=== PATIENT | female | born 1990 | race Caucasian/White ===

== ENCOUNTER 2020-01-05 10:06 | Outpatient (RCR) | payer OTHER | END 2020-01-29 | disposition home or self-care (01) | LOC: LAB 10:06 | PROVIDERS: ATTEND Family Medicine | DX: O09.90 Supervision of high risk pregnancy, unspecified, unspecified trimester (principal); Z3A.00 Weeks of gestation of pregnancy not specified | CPT/HCPCS: 36415; 84144; 84702 ==

== ENCOUNTER → 2020-02-23 | Outpatient (CLI) | payer OTHER ==
--- NOTE | 2020-02-23 12:09 | Diagnostic Imaging Report ---
INDICATION: survey. TECHNIQUE: Multiple Real-time grayscale images were obtained over the gravid uterus. COMPARISON: None FINDINGS: There is a single live fetus in a cephalic presentation. The heart rate was recorded at 143 BPM. The placenta is posterior. The amniotic fluid index is 13.7 cm. The cervical length is 4.1 cm. The survey demonstrates the kidneys, bladder, and stomach to be unremarkable. The brain is unremarkable. There is a four-chamber heart. There is a three-vessel cord with normal insertion. The spine is unremarkable. Biometrical measurements are as follows: Biparietal 5.13 cm, age 21 weeks 4 days. Head circumference 19.10 cm, age 21 weeks 3 days. Abdominal circumference 15.48 cm, age 20 weeks 5 days. Femur length 3.50 cm, age 21 weeks 1 days. Sonographic estimate age: 21 weeks 2 days. Sonographic estimated date of delivery: 07/03/2020. Estimated Weight: 386 gm (+/- 56 gm). LMP percentile: 56%. heart rate: 143 beats per minute. number: 1 of 1. IMPRESSION: Single live IUP of 21 weeks 2 days gestational age. The estimated date of confinement sonographically is 07/03/2020. Dictated by: Dictated on workstation # [id number]
== END ==
LOC: RAD 10:00
PROVIDERS: ATTEND Nurse Practitioner Women's Health
DX: Z34.92 Encounter for supervision of normal pregnancy, unspecified, second trimester (principal); Z3A.21 21 weeks gestation of pregnancy
CPT/HCPCS: 76805

== ENCOUNTER 2020-04-27 13:57 | Outpatient (RCR) | payer OTHER | END 2020-05-02 | disposition home or self-care (01) | LOC: LAB 13:57 | PROVIDERS: ATTEND Family Medicine | DX: O09.90 Supervision of high risk pregnancy, unspecified, unspecified trimester (principal); Z3A.00 Weeks of gestation of pregnancy not specified | CPT/HCPCS: 36415; 84144 ==

== ENCOUNTER 2020-06-21 09:33 | Outpatient (RCR) | payer OTHER ==
[2020-07-08] MEDS ORDERED: IBUP-844 PO (21:00)
[2020-07-08] MEDS ORDERED: DCS100C PO (21:00)
[2020-07-08] MEDS ORDERED: FERR325T18 PO (21:00)
[2020-07-08] MEDS ORDERED: DIBU30OI TOP (21:00)
[2020-07-08] MEDS ORDERED: BENZ78AE5 TP (21:00)
[2020-07-08] MEDS ORDERED: ACHD5005 PO (21:00)
== END 2020-08-08 | disposition home or self-care (01) ==
LOC: LAB 09:33
PROVIDERS: ATTEND Family Medicine
DX: O09.90 Supervision of high risk pregnancy, unspecified, unspecified trimester (principal); Z3A.00 Weeks of gestation of pregnancy not specified
CPT/HCPCS: 36415; 84144

== ENCOUNTER 2020-07-08 18:53 | Inpatient (IN) | payer OTHER ==
[~2020-07-08] VITALS: Ht 170.2 cm; Wt 79.1 kg
[2020-07-08] MEDS ORDERED: D5 LR IV SOLUTION 1,000 ML IV ONE (19:10)
[2020-07-08] MEDS ORDERED: OXYTOCIN PRE-MIX DRIP 1,000 ML IV ONE (19:10)
[2020-07-08] MEDS ORDERED: LIDOCAINE 1% INJ 20 ML 20 ML VIAL INJ PRN (19:30)
[2020-07-08] MEDS ORDERED: D5 LR IV SOLUTION 1,000 ML IV SCH (19:30)
[2020-07-08] MEDS ORDERED: ONDANSETRON 4 MG/2 ML (SDV) Z0FRAN ONE (19:36)
[2020-07-08] MEDS ORDERED: LIDOCAINE/EPI 2% 1:200,00 (XYLOCAINE) 10 ML VIAL ONE (19:44)
[2020-07-08 20:00] VITALS: BP 121/73
[2020-07-08 20:00] LABS: BASOPHILS % (AUTO) 0 % (0-10); EOSINOPHILS # (AUTO) 0.1 10^3/uL (0.0-0.3); EOSINOPHILS % (AUTO) 1 % (0-10); HEMATOCRIT 35 % (35-52); HEMOGLOBIN 12.4 g/dL (11.5-16.0); LYMPHOCYTES # (AUTO) 1.2 10^3/uL (1.0-4.0); LYMPHOCYTES % (AUTO) 14 % (12-44); MEAN CORPUSCULAR HEMOGLOBIN 32 pg (25-34); MEAN CORPUSCULAR HGB CONC 35 g/dL (32-36); MEAN CORPUSCULAR VOLUME 90 fL (80-99); MEAN PLATELET VOLUME 11.6 fL (9.0-12.2); MONOCYTES # (AUTO) 0.5 10^3/uL (0.0-1.0); MONOCYTES % (AUTO) 5 % (0-12); NEUTROPHILS # (AUTO) 6.8 10^3/uL (1.8-7.8); NEUTROPHILS % (AUTO) 79 % (42-75); PLATELET COUNT 163 10^3/uL (130-400); WHITE BLOOD COUNT 8.5 10^3/uL (4.3-11.0)
[2020-07-08] MEDS: IBUPROFEN 600 MG (MOTRIN) TAB PO SCH (20:30)
[2020-07-08] MEDS: OXYTOCIN PRE-MIX DRIP 500 ML IV SCH ×2 (20:41→21:11)
--- NOTE | 2020-07-08 20:54 | History & Physical-OB ---
OB - Chief Complaint & HPI Date/Time Date of Admission: Date of Admission: Jul 08, 2020 at 19:40 Date seen by a Provider: Jul 08, 2020 Time Seen by a Provider: 08:45 Chief Complaint/History OB-Reason for Admission/Chief: Onset of Labor Hx : 3 Hx Para: 2 Expected Date of Delivery: Jul 07, 2020 Gestational Age in Weeks: 40 Gestational Age in Days: 1 Admission Nurse Assessment Rev: Yes Allergies and Home Medications Allergies Coded Allergies: No Known Drug Allergies (Unverified , 07/08/20) Patient Home Medication List Home Medication List Reviewed: Yes OB - History Hx of Present Care: Yes Ultrasounds: Normal mid trimester US Obstetrical Complications: None Medical Complications: None Patient Past Medical History n/a Immunizations Hepatitis A: Yes Hepatitis B: Yes OB - Admission Exam Physical Exam HEENT: NCAT Heart: Rhythm Normal Lungs: Clear Abdomen: Gravid Extremities: Normal Reflexes: Normal Cervical Dilatation: 6cm Effacement: 75% Station: -1 Membranes: Intact Heart Rate: 130's Accelerations: Accelerations Present Decelerations: No Decelerations Short Term Variability: Present Alf Variability: Average (6-25) Contractions on Admission: < 5 Minutes Apart Intensity: Firm Labs Laboratory Tests Test 07/08/20 19:48 Range/Units White Blood Count 8.5 4.3-11.0 10^3/uL Red Blood Count 3.94 3.80-5.11 10^6/uL Hemoglobin 12.4 11.5-16.0 g/dL Hematocrit 35 35-52 % Mean Corpuscular Volume 90 80-99 fL Mean Corpuscular Hemoglobin 32 25-34 pg Mean Corpuscular Hemoglobin Concent 35 32-36 g/dL Red Cell Distribution Width 11.9 10.0-14.5 % Platelet Count 163 130-400 10^3/uL Mean Platelet Volume 11.6 9.0-12.2 fL Immature Granulocyte % (Auto) 1 % Neutrophils (%) (Auto) 79 H 42-75 % Lymphocytes (%) (Auto) 14 12-44 % Monocytes (%) (Auto) 5 0-12 % Eosinophils (%) (Auto) 1 0-10 % Basophils (%) (Auto) 0 0-10 % Neutrophils # (Auto) 6.8 1.8-7.8 10^3/uL Lymphocytes # (Auto) 1.2 1.0-4.0 10^3/uL Monocytes # (Auto) 0.5 0.0-1.0 10^3/uL Eosinophils # (Auto) 0.1 0.0-0.3 10^3/uL Basophils # (Auto) 0.0 0.0-0.1 10^3/uL Immature Granulocyte # (Auto) 0.1 0.0-0.1 10^3/uL OB - Assessment/Plan/Diagnosis Assessment Assessment: active labor Admission Dx 29 yo @ 40.1 Active labor Post dates GBS neg Admission Status: Inpatient Order (span 2 midnights) Reason for Inpatient Admission: Active labor at term Plan Plan: Expectant Management NILS ZHAO DO Jul 08, 2020 20:54
[2020-07-08] MEDS ORDERED: IBUPROFEN 600 MG (MOTRIN) TAB PO ONE (20:55)
--- NOTE | 2020-07-08 20:57 | OB Labor & Delivery Record ---
L&D History Date of Service Date of Service: Jul 08, 2020 History Expected Date of Delivery: Jul 07, 2020 Gestational Age in Weeks: 40 Hx : 3 Hx Para: 2 Complications Events: Routine care Operative Indications (Cesarea: N/A-Vaginal Delivery Intrapartal Events: Precipitous Labor < 3 hrs L&D Stage1 Stage One Onset of Labor - Date: Jul 08, 2020 Monitors and Tracing Monitor Mode: External Monitor Accelerations: Uniform Monitor Decelerations: Variable Station: -1 Senior Living Variability: Average (6-10) Short Term Variability: Present Presentation: Vertex Rupture of Membranes Spontaneous Ruture of Membrane: Yes Amniotic Membrane Rupture Time: 20:20 Amniotic Membrane Fluid Desc.: Meconium Stained Vaginal Bleeding Description: Normal Show Progress/Notes Patient admitted for active labor 6-7 cm. She progressed without augmentation and SROM to complete and +3 station without any analgesia. I was called for anticipated precipitous delivery. L&D Stage2 Stage Two Stage II Date: Jul 08, 2020 Monitors and Tracing Monitor Mode: External Monitor Accelerations: Uniform Monitor Decelerations: Variable Freelance Displayer Variability: Average (6-10) Short Term Variability: Present Position: Right Occiput Anterior Presentation: Vertex Cord Descript/Complications Cord Vessel Description: 3 Vessels Delivery Type Infant Delivery Method: Spontaneous Vaginal Anterior Shoulder: Right Episiotomy/Perineal Laceration Episiotomy Description: Perineal Extension/lac, 1st degree Degree (describe repair) 1st degree perineal laceration repaired using 3-0 rapide Condition of Delivery 1 minute Comment: 8 5 minute Comment: 9 Notes Live female weight pending. Condition of Condition of Infant: Living Exam: No Observed Abnormalities Resuscitation Resuscitation: N/A - Spontaneous Resp L&D Stage3 Stage Three Stage III Date: Jul 08, 2020 Pictocin Pitocin Administration Comment: 30 mu wide open after delivery of placenta Placenta Delivery Placenta Delivery: Spontaneous Delivery Summary Summary Estimated blood loss (mL): 300 Attending at delivery: Nils Zhao DO Condition of Delivery Examined: Cervix Examined, Uterus Explored Post Hemorrhage: No Condition of Mother stable Condition of (s) stable NILS ZHAO DO Jul 08, 2020 20:57
--- NOTE | 2020-07-08 20:59 | Discharge Inst-Women's Service ---
Discharge Inst-Women's Serv Depart Medication/Instructions New, Converted or Re-Newed RX: RX on Chart Final Diagnosis PPD 2 NVD Problems Reviewed?: Yes Consults/Follow Up Additional Follow Up: Yes Orders/Referrals Dr. Zhao in 6 weeks Activity Activity: Activity as Tolerated Driving Instructions: No Driving for 1 Week NO SMOKING: NO SMOKING Nothing Inside Vagina: No Douching, No [place], No Tampons Diet Discharge Diet: No Restrictions Symptoms to Report to : Bleeding Excessive, Pain Increased, Fever Over 101 Degrees F, Vaginal Bleeding Increase, Questions/Concerns For Any Problems or Questions: Contact Your Physician NILS ZHAO DO Jul 08, 2020 20:59
[2020-07-08] MEDS ORDERED: IBUP-844 PO (21:00)
[2020-07-08] MEDS ORDERED: DIBUCAINE (NUPERCAINAL) 1% OINT 30 GM TOP PRN (21:00)
[2020-07-08] MEDS ORDERED: MEASLES,MUMPS,RUBELLA 1 EA INJ SQ ONE (21:00)
[2020-07-08] MEDS ORDERED: DCS100C PO (21:00)
[2020-07-08] MEDS ORDERED: ACHD5005 PO (21:00)
[2020-07-08] MEDS ORDERED: FERR325T18 PO (21:00)
[2020-07-08] MEDS ORDERED: BENZOCAINE/MENTHOL (DERMOPLAST) 60 ML CAN TP PRN (21:00)
[2020-07-08] MEDS ORDERED: WITCH HAZEL(TUCKS) 40 EA JAR TOP PRN (21:00)
[2020-07-08] MEDS ORDERED: BENZ78AE5 TP (21:00)
[2020-07-08] MEDS ORDERED: HYDROcodone/APAP 5 MG/325 MG (LORTAB) TAB PO PRN (21:00)
[2020-07-08] MEDS ORDERED: TETANUS,DIPTH,PERTUSS P/F (BOOSTRIX) 0.5 ML VIAL IM ONE (21:00)
[2020-07-08] MEDS ORDERED: DIBU30OI TOP (21:00)
[2020-07-08 21:15] VITALS: BP 116/70
[2020-07-08 21:30] VITALS: BP 110/61
[2020-07-08 21:45] VITALS: BP 117/66
[2020-07-08] MEDS ORDERED: CATHETER FLUSH 10 ML SYR IV SCH ×2 (22:00)
[2020-07-08 22:15] VITALS: BP 100/57
[2020-07-08 22:44] VITALS: BP 121/73
[2020-07-09 02:06] VITALS: BP 87/48
[2020-07-09] MEDS: IBUPROFEN 600 MG (MOTRIN) TAB PO SCH ×3 (02:07→15:04)
[2020-07-09] MEDS: DOCUSATE SODIUM 100 MG (COLACE) CAP PO SCH ×2 (02:07→08:34)
[2020-07-09 05:22] LABS: BASOPHILS % (AUTO) 0 % (0-10); EOSINOPHILS % (AUTO) 0 % (0-10); HEMATOCRIT 30 % (35-52); HEMOGLOBIN 10.5 g/dL (11.5-16.0); LYMPHOCYTES # (AUTO) 1.2 10^3/uL (1.0-4.0); LYMPHOCYTES % (AUTO) 12 % (12-44); MEAN CORPUSCULAR HEMOGLOBIN 31 pg (25-34); MEAN CORPUSCULAR HGB CONC 35 g/dL (32-36); MEAN CORPUSCULAR VOLUME 89 fL (80-99); MEAN PLATELET VOLUME 12.1 fL (9.0-12.2); MONOCYTES # (AUTO) 0.6 10^3/uL (0.0-1.0); MONOCYTES % (AUTO) 6 % (0-12); NEUTROPHILS # (AUTO) 8.2 10^3/uL (1.8-7.8); NEUTROPHILS % (AUTO) 82 % (42-75); PLATELET COUNT 161 10^3/uL (130-400)
[2020-07-09 05:48] VITALS: BP 96/50
[2020-07-09] MEDS ORDERED: PRENATAL VITAMIN 1 EA TAB PO SCH (07:00)
--- NOTE | 2020-07-09 08:08 | Postpartum Progress Note ---
Note Note Day # 1 Subjective: Patient is without complaints. Ambulating, voiding. Tolerating a regular diet without nausea or vomiting. Normal lochia. Pain is well controlled with oral pain medications. Objective: Physical Exam: General - Alert and oriented, no apparent distress Abdomen - Soft, appropriately tender to palpation, non-distended, fundus firm at umbilicus Extremities - no edema, negative Kassandra's bilaterally Assessment: PPD 1 NVD Acute blood loss anemia Plan: Routine care. Encourage breast feeding. Encourage ambulation. Ferrous sulfate supplementation. Plan for discharge tomorrow Vitals - Labs Vital Signs - I&O Vital Signs Date Time Temp Pulse Resp B/P (MAP) Pulse Ox O2 Delivery O2 Flow Rate FiO2 07/09/20 05:48 36.6 65 18 96/50 (65) 97 Room Air 07/09/20 02:06 36.8 86 18 87/48 (61) 96 Room Air 07/08/20 22:44 37.6 91 18 98 Room Air 07/08/20 22:15 86 18 100/57 (71) Room Air 07/08/20 21:45 37.4 74 18 117/66 (83) Room Air 07/08/20 21:30 37.3 77 18 110/61 (77) Room Air 07/08/20 21:15 37.4 81 18 116/70 (85) Room Air 07/08/20 21:00 37.3 18 Room Air 07/08/20 20:45 37.6 18 Room Air 07/08/20 20:00 37.6 91 18 121/73 (89) 98 Room Air Labs Laboratory Tests 07/08/20 19:48: White Blood Count 8.5, Red Blood Count 3.94, Hemoglobin 12.4, Hematocrit 35, Mean Corpuscular Volume 90, Mean Corpuscular Hemoglobin 32, Mean Corpuscular Hemoglobin Concent 35, Red Cell Distribution Width 11.9, Platelet Count 163, Mean Platelet Volume 11.6, Immature Granulocyte % (Auto) 1, Neutrophils (%) (Auto) 79H, Lymphocytes (%) (Auto) 14, Monocytes (%) (Auto) 5, Eosinophils (%) (Auto) 1, Basophils (%) (Auto) 0, Neutrophils # (Auto) 6.8, Lymphocytes # (Auto) 1.2, Monocytes # (Auto) 0.5, Eosinophils # (Auto) 0.1, Basophils # (Auto) 0.0, Immature Granulocyte # (Auto) 0.1 07/09/20 05:12: White Blood Count 10.0, Red Blood Count 3.36L, Hemoglobin 10.5L, Hematocrit 30L, Mean Corpuscular Volume 89, Mean Corpuscular Hemoglobin 31, Mean Corpuscular Hemoglobin Concent 35, Red Cell Distribution Width 11.9, Platelet Count 161, Mean Platelet Volume 12.1, Immature Granulocyte % (Auto) 0, Neutrophils (%) (Auto) 82H, Lymphocytes (%) (Auto) 12, Monocytes (%) (Auto) 6, Eosinophils (%) (Auto) 0, Basophils (%) (Auto) 0, Neutrophils # (Auto) 8.2H, Lymphocytes # (Auto) 1.2, Monocytes # (Auto) 0.6, Eosinophils # (Auto) 0.0, Basophils # (Auto) 0.0, Immature Granulocyte # (Auto) 0.0 NILS ZHAO DO Jul 09, 2020 08:08
[2020-07-09 08:31] VITALS: BP 97/60
[2020-07-09] MEDS ORDERED: FERROUS SULF 325 MG (IRON) TAB PO SCH (09:00)
[2020-07-09 13:11] VITALS: BP 109/58
== END 2020-07-09 17:20 | disposition home or self-care (01) | DRG 806 ==
LOC: WSo 18:53 → LDRP 18:54 → WSo 19:39 → LDRP 19:40
PROVIDERS: ADMIT Obstetrics & Gynecology; ATTEND Obstetrics & Gynecology
PROC: 10E0XZZ Delivery of Products of Conception, External Approach (ICD-10-PCS; principal; 2020-07-08)
PROC: 0HQ9XZZ Repair Perineum Skin, External Approach (ICD-10-PCS; 2020-07-08)
DX: O48.0 Post-term pregnancy (principal); D62 Acute posthemorrhagic anemia; Z37.0 Single live birth; Z3A.40 40 weeks gestation of pregnancy; O70.0 First degree perineal laceration during delivery; O90.81 Anemia of the puerperium
CPT/HCPCS: 36415; 85025; 86850; 86900; 86901; 99212

== ENCOUNTER 2020-08-10 02:14 | Emergency (ER) | payer OTHER ==
[~2020-08-10] VITALS: Ht 170 cm; Wt 65.0 kg
[~2020-08-10 02:14] MED LIST: ACHD5005 PO; BENZ78AE5 TP; DCS100C PO; DIBU30OI TOP; FERR325T18 PO; IBUP-844 PO
--- NOTE | 2020-08-10 02:37 | ED Chest Pain ---
General Chief Complaint: Chest Pain Stated Complaint: CP Source: patient History of Present Illness Date Seen by Provider: Aug 10, 2020 Time Seen by Provider: 02:21 Initial Comments PT ARRIVES VIA POV FROM HOME C/O PAIN TO LOWER CHEST, RADIATES ALL THE WAY AROUND HER LOWER CHEST/RIBS ON BOTH SIDES, AND ALL THE WAY AROUND TO HER BACK ON BOTH SIDES PAIN BEGAN JUST BEFORE MIDNIGHT. NO COUGH NO SHORTNESS OF BREATH NO FEVER/SWEATS/CHILLS STATES SHE WAS "SHAKING REALLY BAD AND COULDN'T CONTROL IT, BECAUSE THE PAIN WAS SO BAD" --IS GONE NOW + NAUSEA, NO VOMITING NO SWELLING IN LEGS/ FEET OR PAIN IN CALVES NO RECENT ILLNESS PT DELIVERED 4 WEEKS AGO--NORMAL VAGINAL DELIVERY, NO COMPLICATIONS PT IS AB 0 PT IS STILL HAVING LIGHT BLEEDING/SPOTTING. NOT ON CONTROL STATES THIS SAME PAIN ACTUALLY BEGAN DURING HER 3RD TRIMESTER OF -- HAPPENED SEVERAL TIMES WHILE SHE WAS ALWAYS IS AT NIGHT, AND STATES SHE NORMALLY TAKES A TUMS AND IT GOES AWAY AFTER A COUPLE OF HOURS HAD IT ABOUT 3 WEEKS AGO, AND TOOK IBUPROFEN AND IT WENT AWAY STATES TONIGHT, SHE TOOK AN IBUPROFEN AND IT GOT BETTER, THEN STARTED COMING BACK SO SHE TOOK A LEFT OVER HYDROCODONE FROM HAVING THE BABY, AND PAIN IS NOW GONE HAS NOT SOUGHT CARE FOR THIS UNTIL TONIGHT SYMPTOMS NOT ANY DIFFERENT TONIGHT. STATES SHE THOUGHT IT WAS ACID REFLUX. PCP: DR. TREJO VP DATA: DR. ZHAO Allergies and Home Medications Allergies Coded Allergies: No Known Drug Allergies (Unverified , 07/08/20) Home Medications Docusate Sodium 100 Mg Capsule, 100 MG PO BID PRN for CONSTIPATION-1ST LINE Prescribed by: NILS ZHAO on 07/08/202099 Ferrous Sulfate 325 Mg Tablet, 325 MG PO DAILY Prescribed by: NILS ZHAO on 07/08/202099 Hydrocodone Bit/Acetaminophen 1 Tab Tab, 1 EA PO Q4H PRN for PAIN-MODERATE (5-7) Prescribed by: NILS ZHAO on 07/08/202099 Ibuprofen 600 Mg Tablet, 600 MG PO Q6HR Prescribed by: NILS ZHAO on 07/08/202099 Patient Home Medication List Home Medication List Reviewed: Yes Review of Systems Review of Systems Constitutional: no symptoms reported; No chills, No diaphoresis, No dizziness, No fever, No malaise, No weakness EENTM: No Symptoms Reported Respiratory: No Symptoms Reported Cardiovascular: See HPI; Denies Edema, Denies Irregular Heart Rate, Denies Lightheadedness, Denies Palpitations, Denies Syncope Gastrointestinal: See HPI; Denies Abdominal Pain; Nausea; Denies Vomiting Genitourinary: No Symptoms Reported Musculoskeletal: see HPI, back pain Skin: no symptoms reported Psychiatric/Neurological: See HPI ("SHAKING" DUE TO PAIN ) Endocrine: No Symptoms Reported Hematologic/Lymphatic: No Symptoms Reported Past Pbqostq-[id number]-[id number] Hx Past Med/Social Hx: Reviewed and Corrections made Patient Social History Alcohol Use: Denies Use Smoking Status: Never a Smoker Past Medical History Surgeries: No Respiratory: No Cardiac: No Neurological: No : No Hx : 3 Hx Para: 3 Hx Total # of Abortions (Sp): 0 Reproductive Disorders: No Female Reproductive Disorders: Denies Genitourinary: No Gastrointestinal: No Musculoskeletal: Yes (PSEUDOGOUT IN KNEE) Endocrine: No HEENT: No Cancer: No Psychosocial: No Integumentary: No Blood Disorders: No Physical Exam Vital Signs Vital Signs - First Documented Capillary Refill : Less Than 3 Seconds Height, Weight, BMI Height: '" Weight: lbs. oz. kg; 27.30 BMI Method: General Appearance: No Apparent Distress, WD/WN HEENT: PERRL/EOMI Respiratory: Normal Breath Sounds, No Accessory Muscle Use, No Respiratory Distress Cardiovascular: Regular Rate, Rhythm, No Edema, No JVD, No Murmur Gastrointestinal: Normal Bowel Sounds, No Organomegaly, No Pulsatile Mass, Soft, Tenderness (MILD EPIGASTRIC TENDERNESS) Extremity: Normal Capillary Refill, Normal Inspection, Normal Range of Motion, Non Tender, No Calf Tenderness Neurologic/Psychiatric: Alert, Oriented x3, No Motor/Sensory Deficits, Normal Mood/Affect, retoucher photoengraving II-XII Norm as Tested Skin: Normal Color, Warm/Dry; No Rash Progress/Results/Core Measures Results/Orders Lab Results Laboratory Tests Test 08/10/20 02:35 08/10/20 03:12 Range/Units White Blood Count 6.1 4.3-11.0 10^3/uL Red Blood Count 4.18 3.80-5.11 10^6/uL Hemoglobin 13.1 11.5-16.0 g/dL Hematocrit 38 35-52 % Mean Corpuscular Volume 92 80-99 fL Mean Corpuscular Hemoglobin 31 25-34 pg Mean Corpuscular Hemoglobin Concent 34 32-36 g/dL Red Cell Distribution Width 11.4 10.0-14.5 % Platelet Count 283 130-400 10^3/uL Mean Platelet Volume 9.8 9.0-12.2 fL Immature Granulocyte % (Auto) 0 % Neutrophils (%) (Auto) 68 42-75 % Lymphocytes (%) (Auto) 24 12-44 % Monocytes (%) (Auto) 5 0-12 % Eosinophils (%) (Auto) 3 0-10 % Basophils (%) (Auto) 0 0-10 % Neutrophils # (Auto) 4.2 1.8-7.8 10^3/uL Lymphocytes # (Auto) 1.5 1.0-4.0 10^3/uL Monocytes # (Auto) 0.3 0.0-1.0 10^3/uL Eosinophils # (Auto) 0.2 0.0-0.3 10^3/uL Basophils # (Auto) 0.0 0.0-0.1 10^3/uL Immature Granulocyte # (Auto) 0.0 0.0-0.1 10^3/uL Prothrombin Time 12.6 12.2-14.7 SEC INR Comment 0.9 0.8-1.4 Activated Partial Thromboplast Time 30 24-35 SEC Sodium Level 139 135-145 MMOL/L Potassium Level 3.4 L 3.6-5.0 MMOL/L Chloride Level 105 98-107 MMOL/L Carbon Dioxide Level 20 L 21-32 MMOL/L Anion Gap 14 5-14 MMOL/L Blood Urea Nitrogen 22 H 7-18 MG/DL Creatinine 0.86 0.60-1.30 MG/DL Estimat Glomerular Filtration Rate > 60 BUN/Creatinine Ratio 26 Glucose Level 99 70-105 MG/DL Calcium Level 9.1 8.5-10.1 MG/DL Corrected Calcium 8.9 8.5-10.1 MG/DL Magnesium Level 1.9 1.6-2.4 MG/DL Total Bilirubin 0.7 0.1-1.0 MG/DL Aspartate Amino Transf (AST/SGOT) 177 H 5-34 U/L Alanine Aminotransferase (ALT/SGPT) 88 H 0-55 U/L Alkaline Phosphatase 177 H 40-136 U/L Total Creatine Kinase 60 29-168 U/L Creatine Kinase MB 0.5 <6.6 NG/ML Myoglobin 19.2 10.0-92.0 NG/ML Troponin I < 0.028 <0.028 NG/ML B-Type Natriuretic Peptide < 10.0 <100.0 PG/ML Total Protein 7.6 6.4-8.2 GM/DL Albumin 4.3 3.2-4.5 GM/DL Amylase Level 53 25-125 U/L Lipase 19 8-78 U/L Serum Test, Qualitative NEGATIVE NEGATIVE Urine Color YELLOW Urine Clarity CLEAR Urine pH 7.0 5-9 Urine Specific Kimberly 1.010 L 1.016-1.022 Urine Protein NEGATIVE NEGATIVE Urine Glucose (UA) NEGATIVE NEGATIVE Urine Ketones NEGATIVE NEGATIVE Urine Nitrite NEGATIVE NEGATIVE Urine Bilirubin NEGATIVE NEGATIVE Urine Urobilinogen 0.2 < = 1.0 MG/DL Urine Leukocyte Esterase 2+ H NEGATIVE Urine RBC (Auto) 1+ H NEGATIVE Urine RBC 0-2 /HPF Urine WBC 2-5 /HPF Urine Squamous Epithelial Cells RARE /HPF Urine Crystals NONE /LPF Urine Bacteria TRACE /HPF Urine Casts NONE /LPF Urine Mucus NEGATIVE /LPF Urine Culture Indicated YES My Orders Orders - JOB RUIZ DO Ed Iv/Invasive Line Start (08/10/20 02:23) Ekg Tracing (08/10/20 02:23) Monitor-Rhythm Ecg Trace Only (08/10/20 02:23) Amylase (08/10/20 02:23) BNP (08/10/20 02:23) Cbc With Automated Diff (08/10/20 02:23) Comprehensive Metabolic Panel (08/10/20 02:23) Creatine Kinase (08/10/20 02:23) Creatine Kinase Mb (08/10/20 02:23) Hcg,Qualitative Serum (08/10/20 02:23) Lipase (08/10/20 02:23) Magnesium (08/10/20 02:23) Protime With Inr (08/10/20 02:23) Partial Thromboplastin Time (08/10/20 02:23) Ua Culture If Indicated (08/10/20 02:23) Myoglobin Serum (08/10/20 02:23) Troponin I (08/10/20 02:23) Chest 1 View, Ap/Pa Only (08/10/20 02:53) Urine Culture (08/10/20 03:12) Ct Renu Chest/Noang Abd-Pelv W (08/10/20 03:41) Iohexol Injection (Omnipaque 350 Mg/Ml 1 (08/10/20 04:15) Received Contrast (Hold Metformin- Contr (08/10/20 04:15) Ns (Ivpb) (Sodium Chloride 0.9% Ivpb Bag (08/10/20 04:15) Medications Given in ED Current Medications Medications Dose Ordered Sig/Carolyne Route Start Time Stop Time Status Last Admin Dose Admin Iohexol 75 ml ONCE ONCE IV 08/10/20 04:15 08/10/20 04:16 DC 08/10/20 04:45 75 ML Sodium Chloride 100 ml ONCE ONCE IV 08/10/20 04:15 08/10/20 04:16 DC 08/10/20 04:45 100 ML Vital Signs/I&O 08/10/20 08/10/20 08/10/20 02:23 02:23 05:36 Temp 36.5 36.5 Pulse 79 69 Resp 18 18 B/P (MAP) 123/99 (107) 103/66 (107) Pulse Ox 98 99 O2 Delivery Room Air Room Air Room Air Progress Progress Note : Progress Note NO SYMPTOMS DURING ER STAY Initial ECG Impression Date: Aug 10, 2020 Initial ECG Impression Time: 02:26 Initial ECG Rate: 70 Initial ECG Rhythm: Normal Sinus Initial ECG Impression: Normal Diagnostic Imaging Comments CXR--NO ACUTE PROCESS, PENDING RADIOLOGIST REVIEW CT ANGIOGRAM CHEST/ ABDOMEN AND PELVIS--NO P.E. OR ACUTE ABNORMALITY IN CHEST. + CHOLELITHIASIS WITHOUT EVIDENCE OF CHOLECYSTITIS. PER [facility] VIA FAX AT [id number] Reviewed: Reviewed by Me Departure Impression Primary Impression: Cholelithiasis Additional Impressions: Epigastric abdominal pain Chest wall pain Elevated liver enzymes Disposition: HOME, SELF-CARE Condition: Improved Departure-Patient Inst. Referrals: ALLIE CADET,LOCAL PHYSICIAN (PCP) Primary Care Physician Patient Instructions: Gallbladder Diet, Gallstones (DC) Add. Discharge Instructions: TAKE IBUPROFEN AND HYDROCODONE NEEDED FOR PAIN TAKE TUMS NEEDED FOR STOMACH DISCOMFORT LOTS OF CLEAR LIQUIDS BLAND DIET--NO SPICY, GREASY/HIGH FAT OR ACIDIC FOODS OR DRINKS FOLLOW UP WITH DR. CADET, GENERAL SURGEON, FOR FURTHER CARE--CALL HIS OFFICE TODAY TO SCHEDULE AN APPOINTMENT RETURN TO ER IF SYMPTOMS WORSEN All discharge instructions reviewed with patient and/or family. Voiced understanding. JOB RUIZ DO Aug 10, 2020 02:37
[2020-08-10 02:51] LABS: BASOPHILS % (AUTO) 0 % (0-10); EOSINOPHILS # (AUTO) 0.2 10^3/uL (0.0-0.3); EOSINOPHILS % (AUTO) 3 % (0-10); HEMATOCRIT 38 % (35-52); HEMOGLOBIN 13.1 g/dL (11.5-16.0); LYMPHOCYTES # (AUTO) 1.5 10^3/uL (1.0-4.0); LYMPHOCYTES % (AUTO) 24 % (12-44); MEAN CORPUSCULAR HEMOGLOBIN 31 pg (25-34); MEAN CORPUSCULAR HGB CONC 34 g/dL (32-36); MEAN CORPUSCULAR VOLUME 92 fL (80-99); MEAN PLATELET VOLUME 9.8 fL (9.0-12.2); MONOCYTES # (AUTO) 0.3 10^3/uL (0.0-1.0); MONOCYTES % (AUTO) 5 % (0-12); NEUTROPHILS # (AUTO) 4.2 10^3/uL (1.8-7.8); NEUTROPHILS % (AUTO) 68 % (42-75); PLATELET COUNT 283 10^3/uL (130-400); WHITE BLOOD COUNT 6.1 10^3/uL (4.3-11.0)
[2020-08-10 03:02] LABS: ALBUMIN 4.3 GM/DL (3.2-4.5); CHLORIDE 105 MMOL/L (98-107); POTASSIUM 3.4 MMOL/L (3.6-5.0); SODIUM 139 MMOL/L (135-145)
[2020-08-10 03:03] LABS: AMYLASE 53 U/L (25-125)
[2020-08-10 03:04] LABS: CALCIUM 9.1 MG/DL (8.5-10.1)
[2020-08-10 03:05] LABS: GLUCOSE 99 MG/DL (70-105); INR 0.9 (0.8-1.4); PROTHROMBIN TIME PATIENT 12.6 SEC (12.2-14.7); TOTAL PROTEIN 7.6 GM/DL (6.4-8.2)
[2020-08-10 03:06] LABS: CARBON DIOXIDE 20 MMOL/L (21-32)
[2020-08-10 03:07] LABS: BILIRUBIN,TOTAL 0.7 MG/DL (0.1-1.0)
[2020-08-10 03:08] LABS: ALKALINE PHOSPHATASE 177 U/L (40-136); CREATININE SERUM 0.86 MG/DL (0.60-1.30); GFR ESTIMATED > 60
[2020-08-10 03:09] LABS: BUN/CREATININE RATIO 26
[2020-08-10 03:11] LABS: ALANINE AMINOTRANSFERASE 88 U/L (0-55); MAGNESIUM 1.9 MG/DL (1.6-2.4)
[2020-08-10 03:12] LABS: CREATINE KINASE 60 U/L (29-168); LIPASE 19 U/L (8-78)
[2020-08-10 03:19] LABS: CREATINE KINASE MB 0.5 NG/ML (<6.6)
[2020-08-10 03:22] LABS: BILIRUBIN,URINE NEGATIVE (NEGATIVE); CLARITY,URINE CLEAR; COLOR,URINE YELLOW; GLUCOSE, URINE (UA) NEGATIVE (NEGATIVE); KETONES,URINE NEGATIVE (NEGATIVE); LEUKOCYTE ESTERASE ,URINE 2+ (NEGATIVE); NITRITE,URINE NEGATIVE (NEGATIVE); PROTEIN,URINE NEGATIVE (NEGATIVE)
[2020-08-10 03:37] LABS: BACTERIA,URINE TRACE /HPF; RBC,URINE 0-2 /HPF; SQUAMOUS EPITHELIAL CELL,UR RARE /HPF
[2020-08-10] MEDS ORDERED: NS 100 ML (IVPB) BAG IV ONE (04:15)
[2020-08-10] MEDS ORDERED: IOHEXOL 350 MG/ML 100 ML (OMNIPAQUE 350) VIAL IV ONE (04:15)
[2020-08-10] MEDS ORDERED: HOLD METFORMIN - RECEIVED CONTRAST 20 ML VIAL IV SCH (04:15)
[2020-08-10 05:36] VITALS: BP 103/66
--- NOTE | 2020-08-10 06:19 | Diagnostic Imaging Report ---
EXAMINATION: Portable erect AP chest at 2:54 AM INDICATION: Chest pain There are no prior studies available for comparison. The heart size is within normal limits. The lungs are clear. There is no evidence for failure, pneumonia or for a pleural effusion. The mediastinum is not widened. The osseous structures are intact. External cardiac monitoring electrodes are noted. IMPRESSION: 1. There is no evidence for active disease. 2. Reportedly, CTA of the chest, abdomen and pelvis is pending for further study. Dictated by: Dictated on workstation # [id number]
--- NOTE | 2020-08-10 06:31 | Diagnostic Imaging Report ---
INDICATION: CP, EPIGASTRIC PAIN, CTA chest, abdomen and pelvis Thin axial sections through the chest, abdomen and pelvis are obtained following intravenous contrast bolus. Multiplanar MIP images were reconstructed and reviewed. All CT scans use one or more of the following dose optimizing techniques: automated exposure control, MA and/or KvP adjustment based on patient size and exam type or iterative reconstruction. There are no prior CT examinations available for comparison. FINDINGS: Images through the thorax show the heart size is within normal limits. The aorta is not abnormally dilated and there is no sign of a dissection. There is no defect within the pulmonary arteries to indicate a pulmonary embolus. The lungs are clear. There is no sign of failure, pneumonia or pleural effusion. There is no mediastinal or hilar adenopathy. There does appear to be a small amount of residual thymic tissue. The thyroid gland is partially obscured by streak artifact. There is no obvious breast mass. The images through the abdomen or pelvis show that both the liver and spleen are prominent. The pancreas, adrenals, the gallbladder, kidneys, the aorta and inferior vena cava and portal vein show no sign of an acute abnormality. There is a small calculus within the gallbladder. There is no evidence for acute cholecystitis, however. There is no pelvic mass or free fluid collection noted. The uterus is prominent and reportedly the patient is . The urinary bladder is grossly unremarkable. The appendix was not well-visualized but there are no indirect signs of acute appendicitis. The bone windows show no sign of a fracture or of a destructive lesion. IMPRESSION: 1. There is no acute abnormality of the chest, abdomen or pelvis. 2. There is a small calculus within the gallbladder and the gallbladder is distended but there is no sign of acute cholecystitis. If further study is desired, then ultrasound would be recommended. 3. Both the liver and spleen are prominent. 4. I agree with [facility] interpretation of this exam. Dictated by: Dictated on workstation # [id number]
== END 2020-08-10 05:41 | disposition home or self-care (01) ==
LOC: EDUNIT# 02:14 → ER 02:17
DX: O99.63 Diseases of the digestive system complicating the puerperium (principal); K80.20 Calculus of gallbladder without cholecystitis without obstruction; O99.893 Other specified diseases and conditions complicating puerperium; R94.5 Abnormal results of liver function studies
CPT/HCPCS: 36415; 71045; 71275; 74177; 80053; 81000; 82150; 82550; 82553; 83690; 83735; 83874; 83880; 84484; 84703; 85025; 85610; 85730; 87088; 93005; 93041

== ENCOUNTER 2020-09-02 05:30 | Outpatient (CLI) | payer OTHER ==
[~2020-09-02] VITALS: Ht 170.2 cm; Wt 67.2 kg
== END 2020-09-02 11:56 | disposition home or self-care (01) ==
LOC: PREOP 05:30
PROVIDERS: ATTEND Surgery
DX: Z01.818 Encounter for other preprocedural examination (principal); K80.80 Other cholelithiasis without obstruction

== ENCOUNTER 2020-09-09 08:32 | Day surgery (SDC) | payer OTHER ==
[~2020-09-09] VITALS: Ht 170.2 cm; Wt 67.2 kg
[2020-09-09] VITALS (11 sets, daily range): BP systolic 90–123; BP diastolic 65–86
[2020-09-09] MEDS ORDERED: LIDOCAINE/EPI 1%-1:200,000 (XYLOCAINE) 30 ML VIAL ONE (08:35)
[2020-09-09] MEDS ORDERED: ceFAZolin INJECTION 1,000 MG in WATER (STERILE) FOR INJECTION 10 ML IV ONE (08:45)
--- NOTE | 2020-09-09 08:51 | Progress Note-Pre Operative ---
Pre-Operative Progress Note H&P Reviewed The H&P was reviewed, patient examined and no changes noted. Date Seen by Provider: September 09, 2020 Time Seen by Provider: 08:45 Date H&P Reviewed: September 09, 2020 Time H&P Reviewed: 08:40 Pre-Operative Diagnosis: Chronic calculous cholecystitis GEORGETTE MARTEL APRN September 09, 2020 08:51
[2020-09-09] MEDS ORDERED: HYDR-3817 PO (08:53)
--- NOTE | 2020-09-09 08:53 | Discharge Inst-Surgical ---
D/C Lap Instructions-KIDO Reconcile Patient Problems Problems Reviewed?: Yes New, Converted, or Re-Newed RX: RX on Chart Follow Up Appt in 2 weeks Activity as tolerated No driving for 24 hours No driving while on pain medications Incentive Spirometry use every 2 hours while awake Regular Diet Symptoms to Report: Fever over 101 degree F, Nausea/Vomiting Infection Signs and Symptoms to report: Increased redness, Foul odor of wound, Increased drainage Bathing instructions: May shower Operative Area Clean/Dry; Keep incision clean/dry If any problems/questions: Contact your physician or go to Emergency Room GEORGETTE MARTEL APRN September 09, 2020 08:53
[2020-09-09] MEDS ORDERED: HYDROcodone/APAP 5 MG/325 MG (LORTAB) TAB PO ONE (09:00)
[2020-09-09] MEDS ORDERED: ONDANSETRON 4 MG/2 ML (SDV) Z0FRAN IVP PRN ×2 (09:00→11:45)
[2020-09-09] MEDS ORDERED: ACETAMINOPHEN 325 MG TABLET PO PRN (09:00)
[2020-09-09] MEDS ORDERED: morphine INJ 10 MG/ML 1ML (SYR OR VIAL) IVP PRN (09:00)
[2020-09-09] MEDS: LACTATED RINGERS 1,000 ML IV PRN ×3 (09:19→12:12)
[2020-09-09] MEDS ORDERED: MIDAZOLAM 2 MG/2 ML (VERSED) VIAL ONE (10:07)
[2020-09-09] MEDS ORDERED: fentaNYL INJ 100 MCG/2 ML AMP ONE (10:07)
[2020-09-09] MEDS ORDERED: LIDOCAINE PF 2% 5 ML (XYLOCAINE) VIAL ONE (10:51)
[2020-09-09] MEDS ORDERED: NEOSTIGMINE 3 MG/3 ML VIAL ONE ×2 (10:51→11:06)
[2020-09-09] MEDS ORDERED: SEVOFLURANE (ULTANE) 15 ML INHAL SOLN ONE ×5 (10:51→11:06)
[2020-09-09] MEDS ORDERED: proPOfol 200 MG/20 ML (DIPRIVAN) VIAL IV ONE (10:51)
[2020-09-09] MEDS ORDERED: ROCURONIUM 10 MG/ML 5 ML SYRINGE IV ONE (10:51)
[2020-09-09] MEDS ORDERED: GLYCOPYRROLATE 0.2 MG/ML (ROBINUL) 2 ML VIAL ONE ×2 (10:51→11:06)
[2020-09-09] MEDS ORDERED: ONDANSETRON 4 MG/2 ML (SDV) Z0FRAN ONE (10:51)
[2020-09-09] MEDS ORDERED: morphine INJ 10 MG/ML 1ML (SYR OR VIAL) ONE (11:08)
--- NOTE | 2020-09-09 11:31 | Progress Note-Post Operative ---
Post-Operative Progess Note Surgeon (s)/Senior Electrical Project Manager (s) Surgeon Dr. Greg Milner M.D. Senior Electrical Project Manager: Nithin Martel APRN Pre-Operative Diagnosis Chronic calculous cholecystitis Post-Operative Diagnosis Chronic calculous cholecystitis Procedure & Operative Findings Date of Procedure 09/09/20 Procedure Performed/Findings Laparoscopic cholecystectomy Anesthesia Type GET Estimated Blood Loss Estimated blood loss (mL): Minimal Specimens/Packing Specimens Removed 1) Gallbladder NITHIN MARTEL JAVA DEVELOPER ARCHITECT September 09, 2020 11:31
[2020-09-09] MEDS ORDERED: morphine INJ 10 MG/ML 1ML (SYR OR VIAL) IVP ONE (11:45)
--- NOTE | 2020-09-09 14:27 | OPERATIVE REPORT ---
DATE OF SERVICE: 09/09/2020 ATTENDING PRIMARY CARE PHYSICIAN: Germaine Wesley DO PREOPERATIVE DIAGNOSIS: Chronic calculous cholecystitis. POSTOPERATIVE DIAGNOSIS: Chronic calculous cholecystitis. PROCEDURE: Laparoscopic cholecystectomy. SURGEON: Lesly Obrien MD DESTINATION COORDINATOR: Nithin Dc APRN ANESTHESIA: General endotracheal. ESTIMATED BLOOD LOSS: Minimal. FINDINGS: Multiple small gallstones, no gallbladder wall thickening. DISPOSITION: The patient tolerated the procedure well. INDICATIONS: The patient is a 29-year-old female, who has had episodes of epigastric and right upper abdominal quadrant pain for the past 4 months, which is described as sharp in nature and would radiate towards her back. 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 This was also associated with some nausea and diarrhea. This was significant at one point and she did present to the Emergency Department where a CT scan of the abdomen and pelvis was performed, which did show distended gallbladder as well as gallstones. DESCRIPTION OF PROCEDURE: The patient was brought to the operating room, laid supine on the table. After adequate IV pain and sedative medications and general endotracheal intubation, the abdomen was prepped and draped in standard surgical fashion. A 0.5% Marcaine with epinephrine was used to anesthetize overlying skin left upper abdominal quadrant and a transverse skin incision made using a 15 blade. An 0 silk suture was applied to the medial aspect incision for retraction and Veress needle inserted with a low opening pressure of 0 mmHg and the abdomen was then insufflated to 15 mmHg pressure. The Veress needle removed and a 5 mm XL trocar placed followed by a 5 mm 45-degree angle laparoscope visualizing the peritoneal cavity. A 4-quadrant abdominal exploration was performed. There was a slightly distended gallbladder, no gallbladder wall thickening. What was visualized of the liver, stomach, omentum and small bowel appeared normal. Under direct visualization, we then proceeded to place a supraumbilical 10 mm port after the skin and peritoneal lining were anesthetized using 0.5% Marcaine with epinephrine and a transverse skin incision made using 15 blade. In a similar manner, a right upper abdominal quadrant 5 mm port was placed. The fundus of the gallbladder was then retracted anteriorly and superiorly and the patient was then placed in reverse Trendelenburg position as well as plane right side up, left side down. The hepatoduodenal ligament was then opened using blunt dissection as well as electrocautery on the hook instrument with visualization of good hemostasis as well as no leaking ducts of Luschka. The entire critical view of safety was identified including the cystic duct and artery as the only two structures going into the gallbladder as well as the cystic plate behind the proximal gallbladder. A timeout was then taken and the cystic duct and artery were then clipped proximally and distally and cut with EndoShears. The gallbladder was then dissected off of the liver bed using cautery on hook instrument with visualization of good hemostasis as well as no leaking ducts of Luschka. The gallbladder was removed through the 10 mm port site using an EndoCatch bag. The 10 mm port site fascia and peritoneum were then closed under direct visualization using a Hair-Brandon device and 0 Vicryl suture. The abdomen was desufflated and remaining ports removed. All skin incisions were closed using 4-0 Monocryl running subcuticular sutures. Wounds were then cleaned and covered with Dermabond. The patient tolerated the procedure well. We will start IV normal pain medication as well as a clear liquid diet. When she is tolerating clears, has good pain control with oral pain medication and is ambulating well, we will discharge her home. She will be instructed to do no heavy lifting or exertion for the next two weeks. Job ID: [id number] DocumentID: [id number] Dictated Date: 09/09/2020 11:20:37 Director Of Cardiac Cath Lab Date: 09/09/2020 14:27:05 Dictated By: LESLY OBRIEN MD
== END 2020-09-09 14:25 | disposition home or self-care (01) ==
LOC: SDC 08:32
PROVIDERS: ATTEND Surgery
DX: K80.10 Calculus of gallbladder with chronic cholecystitis without obstruction (principal)
CPT/HCPCS: 84703; 87081

== ENCOUNTER 2020-09-13 16:12 | Observation (INO) | payer OTHER ==
[~2020-09-13] VITALS: Ht 170 cm; Wt 68.0 kg
[~2020-09-13 16:12] MED LIST changes: +HYDR-3817 PO
--- NOTE | 2020-09-13 16:28 | ED Abdominal Pain ---
General Chief Complaint: Abdominal/GI Problems Stated Complaint: POST CHOLECYSTECTOMY/INCISION SITE PAIN Source of Information: Patient Exam Limitations: No Limitations History of Present Illness Date Seen by Provider: September 13, 2020 Time Seen by Provider: 16:20 Initial Comments To ER by private vehicle from home with reports of right upper quadrant abdominal pain that radiates to her shoulder. This began this morning. It is intolerable despite having taken hydrocodone at 3 PM. She had a laparoscopic cholecystectomy done on , 09/09/[address] Milner. She has had 2 episodes of nausea and vomiting today. Last dose of Zofran was at 3 PM as well. No fevers. Timing/Duration: 4-6 Hours Severity/Quality: Severe Location: RUQ Radiation: Shoulder Activities at Onset: None Associated Symptoms: Nausea/Vomiting Allergies and Home Medications Allergies Coded Allergies: No Known Drug Allergies (Unverified , 07/08/20) Home Medications Hydrocodone/Acetaminophen 1 Each Tablet, 1 EACH PO Q4H PRN for PAIN-BREAKTHROUGH Prescribed by: GEORGETTE MARTEL on 09/09/20 0837 Oxycodone HCl/Acetaminophen 1 Each Tablet, 1 EACH PO Q4H PRN for PAIN-MODERATE Prescribed by: STERLING GIORDANO on 09/13/20 1741 Patient Home Medication List Home Medication List Reviewed: Yes Review of Systems Review of Systems Constitutional: see HPI EENTM: No Symptoms Reported Respiratory: No Symptoms Reported Cardiovascular: No Symptoms Reported Gastrointestinal: See HPI, Abdominal Pain, Nausea, Vomiting Genitourinary: No Symptoms Reported Musculoskeletal: no symptoms reported Skin: no symptoms reported Psychiatric/Neurological: No Symptoms Reported Endocrine: No Symptoms Reported Hematologic/Lymphatic: No Symptoms Reported Past Yxhqkfp-Kmpvyn-Egazeq Hx Patient Social History 2nd Hand Smoke Exposure: No Recent Hopitalizations: No Immunizations Up To Date Tetanus Booster (TDap): Less than 5yrs PED Vaccines UTD: No Seasonal Allergies Seasonal Allergies: No Past Medical History Surgeries: Yes (WISDOM TEETH REMOVED (2011)) Respiratory: No Currently Using CPAP: No Currently Using BIPAP: No Cardiac: No Neurological: No Reproductive Disorders: No Female Reproductive Disorders: Denies Genitourinary: No Gastrointestinal: No 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 oz. kg; 23.19 BMI Method: General Appearance: WD/WN, moderate distress (Related to pain) HEENT: PERRL/EOMI, normal ENT inspection Neck: non-tender, full range of motion Respiratory: no respiratory distress, no accessory muscle use Cardiovascular: regular rate, rhythm, no murmur Gastrointestinal: normal bowel sounds, soft, tenderness (Incision sites are clean dry and intact without surrounding erythema. Tender to palpation right upper quadrant.) Neurologic/Psychiatric: alert, normal mood/affect, oriented x 3 Skin: normal color, warm/dry Progress/Results/Core Measures Results/Orders Lab Results Laboratory Tests Test 09/13/20 16:23 Range/Units White Blood Count 7.9 4.3-11.0 10^3/uL Red Blood Count 4.54 3.80-5.11 10^6/uL Hemoglobin 13.9 11.5-16.0 g/dL Hematocrit 41 35-52 % Mean Corpuscular Volume 91 80-99 fL Mean Corpuscular Hemoglobin 31 25-34 pg Mean Corpuscular Hemoglobin Concent 34 32-36 g/dL Red Cell Distribution Width 11.6 10.0-14.5 % Platelet Count 255 130-400 10^3/uL Mean Platelet Volume 10.0 9.0-12.2 fL Immature Granulocyte % (Auto) 0 % Neutrophils (%) (Auto) 83 H 42-75 % Lymphocytes (%) (Auto) 12 12-44 % Monocytes (%) (Auto) 4 0-12 % Eosinophils (%) (Auto) 1 0-10 % Basophils (%) (Auto) 0 0-10 % Neutrophils # (Auto) 6.5 1.8-7.8 X 10^3 Lymphocytes # (Auto) 0.9 L 1.0-4.0 X 10^3 Monocytes # (Auto) 0.3 0.0-1.0 X 10^3 Eosinophils # (Auto) 0.1 0.0-0.3 10^3/uL Basophils # (Auto) 0.0 0.0-0.1 10^3/uL Immature Granulocyte # (Auto) 0.0 0.0-0.1 10^3/uL Sodium Level 137 135-145 MMOL/L Potassium Level 4.6 3.6-5.0 MMOL/L Chloride Level 103 98-107 MMOL/L Carbon Dioxide Level 19 L 21-32 MMOL/L Anion Gap 15 H 5-14 MMOL/L Blood Urea Nitrogen 10 7-18 MG/DL Creatinine 0.92 0.60-1.30 MG/DL Estimat Glomerular Filtration Rate > 60 BUN/Creatinine Ratio 11 Glucose Level 102 70-105 MG/DL Calcium Level 9.4 8.5-10.1 MG/DL Corrected Calcium 9.0 8.5-10.1 MG/DL Total Bilirubin 0.6 0.1-1.0 MG/DL Aspartate Amino Transf (AST/SGOT) 32 5-34 U/L Alanine Aminotransferase (ALT/SGPT) 52 0-55 U/L Alkaline Phosphatase 110 40-136 U/L Total Protein 7.8 6.4-8.2 GM/DL Albumin 4.5 3.2-4.5 GM/DL Lipase 11 8-78 U/L My Orders Orders - STERLING GIORDANO [employer] DESIGN ENGINEER Cbc With Automated Diff (09/13/20 16:25) Comprehensive Metabolic Panel (09/13/20 16:25) Lipase (09/13/20 16:25) Ua Culture If Indicated (09/13/20 16:25) Ed Iv/Invasive Line Start (09/13/20 16:25) Ct Abdomen/Pelvis W (09/13/20 16:25) Fentanyl Inj (Sublimaze Injection) (09/13/20 16:30) Ketorolac Injection (Toradol Injection) (09/13/20 16:30) Promethazine Injection (Phenergan Injec (09/13/20 16:30) Ns Iv 1000 Ml (Sodium Chloride 0.9%) (09/13/20 16:30) Iohexol Injection (Omnipaque 350 Mg/Ml 1 (09/13/20 17:00) Received Contrast (Hold Metformin- Contr (09/13/20 17:00) Sodium Chloride Flush (Catheter Flush Sy (09/13/20 17:00) Ns (Ivpb) (Sodium Chloride 0.9% Ivpb Bag (09/13/20 17:00) Fentanyl Inj (Sublimaze Injection) (09/13/20 17:45) Medications Given in ED Current Medications Medications Dose Ordered Sig/Carolyne Route Start Time Stop Time Status Last Admin Dose Admin Fentanyl Citrate 50 mcg ONCE ONCE IVP 09/13/20 16:30 09/13/20 16:31 DC 09/13/20 16:38 50 MCG Fentanyl Citrate 50 mcg ONCE ONCE IVP 09/13/20 17:45 09/13/20 17:46 DC 09/13/20 17:42 50 MCG Iohexol 100 ml ONCE ONCE IV 09/13/20 17:00 09/13/20 17:01 DC 09/13/20 17:11 68 ML Ketorolac Tromethamine 15 mg ONCE ONCE IVP 09/13/20 16:30 09/13/20 16:31 DC 09/13/20 16:36 15 MG Promethazine HCl 12.5 mg ONCE ONCE IVP 09/13/20 16:30 09/13/20 16:31 DC 09/13/20 16:35 12.5 MG Sodium Chloride 10 ml NEEDED PRN IV 09/13/20 17:00 09/13/20 17:11 10 ML Sodium Chloride 100 ml ONCE ONCE IV 09/13/20 17:00 09/13/20 17:01 DC 09/13/20 17:11 80 ML Vital Signs/I&O 09/13/20 16:15 Temp 36.8 Pulse 82 Resp 18 B/P (MAP) 121/70 (87) Pulse Ox 100 O2 Delivery Room Air Diagnostic Imaging Diagonstic Imaging: CT Comments NAME: RUTH NAZARIO [facility] REC#: [id number] PT STATUS: REG ER : 1990 PHYSICIAN: STERLING GIORDANO APRN ADMIT DATE: 09/13/20/ER Draft Date of Exam:09/13/20 CT ABDOMEN/PELVIS W EXAMINATION: CT abdomen and pelvis with intravenous contrast. TECHNIQUE: Multiple contiguous axial images were obtained through the abdomen and pelvis after the uneventful administration of intravenous contrast. All CT scans use one or more of the following dose optimizing techniques: automated exposure control, MA and/or KvP adjustment based on patient size and exam type or iterative reconstruction. HISTORY: Right upper quadrant pain. Postcholecystectomy. COMPARISON: 08/10/2020. FINDINGS: The heart is unremarkable. The included lung bases are clear. Interval post cholecystectomy changes are noted. A small amount of free intraperitoneal air is seen. Free fluid is seen in the pelvis. Minimal pneumobilia is present. The spleen, pancreas, adrenal glands, and kidneys have a normal appearance. There is no pathologically enlarged mesenteric or retroperitoneal adenopathy. The bowel loops are nondilated. The appendix is visualized in the right lower quadrant without abnormal appearance. No acute osseous abnormalities. Ureters and bladder are grossly normal. There is no free air, loculated collection, or adenopathy in the pelvis. IMPRESSION: 1. Postoperative changes of cholecystectomy with a small amount of free air and free fluid in the abdomen and pelvis. No loculated collection to suggest abscess. Expected small amount of pneumobilia is present. Dictated on workstation # [id number] Dict: 09/13/20 1717 Trans: 09/13/20 1722 [facility] [id number] Interpreted by: HUMA DAS DO Electronically signed by: Departure Communication (Admissions) 1801-She is NOT feeling better after 2 doses of fentanyl Phenergan and Zofran. This pain was rather sudden in onset. She was feeling fine doing dishes today. Then this pain began suddenly. This is likely related to the residual free air in the abdomen with subsequent distention of the diaphragm and irritation of the phrenic nerve. I could entertain the idea of a postoperative bile leak but the amount of free fluid is minimal and this is not a diffuse peritonitis type tenderness or abdominal pain, its mostly right upper quadrant. The lack of pain control will admit observation status for IV fluids and pain control. Impression Primary Impression: Postoperative pain Disposition: ADMITTED INPATIENT Condition: Stable Admissions Decision to Admit Reason: Admit from ER (General) Decision to Admit/Date: September 13, 2020 Time/Decision to Admit Time: 18:12 Departure-Patient Inst. Decision time for Depature: 17:38 Referrals: ANNAMARIE TREJO DO (PCP/Family) Primary Care Physician Patient Instructions: Managing Pain After Surgery Add. Discharge Instructions: 1. Replace the hydrocodone with the oxycodone. Follow-up with Dr. Milner. Return to ER for any concerns. This gas/shoulder pain is thought to be from overstretching of the diaphragm due to the gases that were insufflated into the abdomen during the surgery and irritation of the phrenic nerve which causes the referred shoulder pain. This pain is usually short-lived not more than a day or 2. Return to ER for any intolerable pain fevers or other concerns. All discharge instructions reviewed with patient and/or family. Voiced understanding. Scripts Oxycodone HCl/Acetaminophen (Oxycodone-Acetaminophen 5-325) 1 Each Tablet 1 EACH PO Q4H PRN for PAIN-MODERATE MDD 6 for 3 Days, #10 TAB 0 Refills Prov: STERLING GIORDANO APRN 09/13/20 Copy Copies To 1: LESLY MILNER MD, PETER J APRN September 13, 2020 16:28
[2020-09-13] MEDS ORDERED: KETOROLAC 30 MG/ML VIAL IVP ONE (16:30)
[2020-09-13] MEDS ORDERED: NS IV 1000 ML 1,000 ML IV SCH (16:30)
[2020-09-13] MEDS ORDERED: PROMETHAZINE INJ 25 MG/ML (PHENERGAN) AMP IVP ONE (16:30)
[2020-09-13] MEDS ORDERED: fentaNYL INJ 100 MCG/2 ML AMP IVP ONE ×2 (16:30→17:45)
[2020-09-13 16:32] LABS: BASOPHILS % (AUTO) 0 % (0-10); EOSINOPHILS # (AUTO) 0.1 10^3/uL (0.0-0.3); EOSINOPHILS % (AUTO) 1 % (0-10); HEMATOCRIT 41 % (35-52); HEMOGLOBIN 13.9 g/dL (11.5-16.0); LYMPHOCYTES # (AUTO) 0.9 X 10^3 (1.0-4.0); LYMPHOCYTES % (AUTO) 12 % (12-44); MEAN CORPUSCULAR HEMOGLOBIN 31 pg (25-34); MEAN CORPUSCULAR HGB CONC 34 g/dL (32-36); MEAN CORPUSCULAR VOLUME 91 fL (80-99); MONOCYTES # (AUTO) 0.3 X 10^3 (0.0-1.0); MONOCYTES % (AUTO) 4 % (0-12); NEUTROPHILS # (AUTO) 6.5 X 10^3 (1.8-7.8); NEUTROPHILS % (AUTO) 83 % (42-75); PLATELET COUNT 255 10^3/uL (130-400); WHITE BLOOD COUNT 7.9 10^3/uL (4.3-11.0)
[2020-09-13 16:45] LABS: ALBUMIN 4.5 GM/DL (3.2-4.5); CHLORIDE 103 MMOL/L (98-107); POTASSIUM 4.6 MMOL/L (3.6-5.0); SODIUM 137 MMOL/L (135-145)
[2020-09-13 16:47] LABS: CALCIUM 9.4 MG/DL (8.5-10.1)
[2020-09-13 16:48] LABS: GLUCOSE 102 MG/DL (70-105); TOTAL PROTEIN 7.8 GM/DL (6.4-8.2)
[2020-09-13 16:49] LABS: CARBON DIOXIDE 19 MMOL/L (21-32)
[2020-09-13 16:50] LABS: BILIRUBIN,TOTAL 0.6 MG/DL (0.1-1.0)
[2020-09-13 16:51] LABS: ALKALINE PHOSPHATASE 110 U/L (40-136); CREATININE SERUM 0.92 MG/DL (0.60-1.30); GFR ESTIMATED > 60
[2020-09-13 16:52] LABS: BUN/CREATININE RATIO 11
[2020-09-13 16:54] LABS: ALANINE AMINOTRANSFERASE 52 U/L (0-55)
[2020-09-13 16:55] LABS: LIPASE 11 U/L (8-78)
[2020-09-13] MEDS ORDERED: IOHEXOL 350 MG/ML 100 ML (OMNIPAQUE 350) VIAL IV ONE (17:00)
[2020-09-13] MEDS ORDERED: NS 100 ML (IVPB) BAG IV ONE (17:00)
[2020-09-13] MEDS ORDERED: CATHETER FLUSH 10 ML SYR IV PRN ×2 (17:00→19:30)
[2020-09-13] MEDS ORDERED: HOLD METFORMIN - RECEIVED CONTRAST 20 ML VIAL IV SCH (17:00)
--- NOTE | 2020-09-13 17:22 | Diagnostic Imaging Report ---
EXAMINATION: CT abdomen and pelvis with intravenous contrast. TECHNIQUE: Multiple contiguous axial images were obtained through the abdomen and pelvis after the uneventful administration of intravenous contrast. All CT scans use one or more of the following dose optimizing techniques: automated exposure control, MA and/or KvP adjustment based on patient size and exam type or iterative reconstruction. HISTORY: Right upper quadrant pain. Postcholecystectomy. COMPARISON: 08/10/2020. FINDINGS: The heart is unremarkable. The included lung bases are clear. Interval post cholecystectomy changes are noted. A small amount of free intraperitoneal air is seen. Free fluid is seen in the pelvis. Minimal pneumobilia is present. The spleen, pancreas, adrenal glands, and kidneys have a normal appearance. There is no pathologically enlarged mesenteric or retroperitoneal adenopathy. The bowel loops are nondilated. The appendix is visualized in the right lower quadrant without abnormal appearance. No acute osseous abnormalities. Ureters and bladder are grossly normal. There is no free air, loculated collection, or adenopathy in the pelvis. IMPRESSION: 1. Postoperative changes of cholecystectomy with a small amount of free air and free fluid in the abdomen and pelvis. No loculated collection to suggest abscess. Expected small amount of pneumobilia is present. Dictated by: Dictated on workstation # [id number]
[2020-09-13] MEDS ORDERED: OXYC1TAB11 PO (17:45)
[2020-09-13] MEDS ORDERED: HYDROmorphone 2 MG/ML VIAL (DILAUDID) IV ONE (18:15)
[2020-09-13 19:00] VITALS: BP 124/78
[2020-09-13] MEDS ORDERED: PROMETHAZINE INJ 25 MG/ML (PHENERGAN) AMP IV PRN (19:30)
[2020-09-13] MEDS ORDERED: oxyCODONE/APAP 5/325MG (PERCOCET 5) TABLET PO PRN (19:30)
[2020-09-13] MEDS: DOCUSATE SODIUM 100 MG (COLACE) CAP PO SCH (19:35)
[2020-09-13] MEDS: LACTATED RINGERS 1,000 ML IV SCH (19:35)
[2020-09-13 20:00] VITALS: BP 124/78
[2020-09-14] VITALS (7 sets, daily range): BP systolic 86–138; BP diastolic 54–69
[2020-09-14] MEDS: LACTATED RINGERS 1,000 ML IV SCH ×3 (03:46→20:39)
[2020-09-14] MEDS: ONDANSETRON 4 MG/2 ML (SDV) Z0FRAN IV PRN ×2 (04:01→22:19)
[2020-09-14] MEDS: fentaNYL INJ 100 MCG/2 ML AMP IV PRN ×2 (04:21→17:39)
[2020-09-14 04:53] LABS: BASOPHILS % (AUTO) 0 % (0-10); EOSINOPHILS # (AUTO) 0.2 10^3/uL (0.0-0.3); EOSINOPHILS % (AUTO) 4 % (0-10); HEMATOCRIT 40 % (35-52); HEMOGLOBIN 13.1 g/dL (11.5-16.0); LYMPHOCYTES # (AUTO) 1.4 10^3/uL (1.0-4.0); LYMPHOCYTES % (AUTO) 26 % (12-44); MEAN CORPUSCULAR HEMOGLOBIN 31 pg (25-34); MEAN CORPUSCULAR HGB CONC 33 g/dL (32-36); MEAN CORPUSCULAR VOLUME 92 fL (80-99); MONOCYTES # (AUTO) 0.3 10^3/uL (0.0-1.0); MONOCYTES % (AUTO) 6 % (0-12); NEUTROPHILS # (AUTO) 3.4 10^3/uL (1.8-7.8); NEUTROPHILS % (AUTO) 64 % (42-75); PLATELET COUNT 212 10^3/uL (130-400); WHITE BLOOD COUNT 5.3 10^3/uL (4.3-11.0)
[2020-09-14 05:01] LABS: ALBUMIN 4.1 GM/DL (3.2-4.5)
[2020-09-14 05:02] LABS: CHLORIDE 105 MMOL/L (98-107); POTASSIUM 3.7 MMOL/L (3.6-5.0); SODIUM 141 MMOL/L (135-145)
[2020-09-14 05:03] LABS: CALCIUM 9.3 MG/DL (8.5-10.1)
[2020-09-14 05:04] LABS: GLUCOSE 82 MG/DL (70-105)
[2020-09-14 05:05] LABS: CARBON DIOXIDE 25 MMOL/L (21-32)
[2020-09-14 05:06] LABS: BILIRUBIN,TOTAL 0.8 MG/DL (0.1-1.0)
[2020-09-14 05:07] LABS: ALKALINE PHOSPHATASE 111 U/L (40-136)
[2020-09-14 05:08] LABS: CREATININE SERUM 0.85 MG/DL (0.60-1.30); GFR ESTIMATED > 60
[2020-09-14 05:09] LABS: BUN/CREATININE RATIO 9
[2020-09-14 05:10] LABS: ALANINE AMINOTRANSFERASE 38 U/L (0-55)
[2020-09-14] MEDS: DOCUSATE SODIUM 100 MG (COLACE) CAP PO SCH ×2 (08:30→20:38)
[2020-09-14] MEDS ORDERED: ONDA-105 PO (10:40)
[2020-09-14] MEDS ORDERED: IBUP-1773 PO (10:40)
[2020-09-14] MEDS ORDERED: DOCU100T7 PO (10:40)
[2020-09-14] MEDS ORDERED: ACHD5005 PO (10:40)
[2020-09-14] MEDS ORDERED: SIME180C4 PO (10:40)
--- NOTE | 2020-09-14 12:29 | HISTORY AND PHYSICAL ---
DATE OF SERVICE: ATTENDING PRIMARY CARE PHYSICIAN: Germaine Wesley DO HISTORY OF PRESENT ILLNESS: The patient is a 29-year-old female, who presented to the Emergency Department with a right upper abdominal quadrant pain with radiation to the shoulder. She is status post laparoscopic cholecystectomy on 09/09/2020. She also reports that she did have an episode of nausea and vomiting due to the pain. She was taking Zofran as well as hydrocodone; however, states that this did not help. She does not report any fever nor chills as well as no jaundice or scleral icterus. A CT scan was performed, which showed normal postoperative changes and her laboratory work was normal as well. She was admitted for pain control. Today, she is doing much better and is tolerating clear liquid diet. Repeat laboratory work again showed normal liver function enzymes. PAST MEDICAL HISTORY: None. PAST SURGICAL HISTORY: Laparoscopic cholecystectomy, 09/09/2020. ALLERGIES: No known drug allergies. MEDICATIONS: Hydrocodone p.r.n., Zofran p.r.n. SOCIAL HISTORY: Negative smoke, negative alcohol. FAMILY HISTORY: Noncontributory. VITAL SIGNS: Temperature 37.0, blood pressure 100/59, pulse 72, respirations 18, pulse ox 98% on room air. REVIEW OF SYSTEMS: A well-nourished female, currently in no acute distress. She is not experiencing any shortness of breath or difficulty breathing. No chest pain, palpitations, diaphoresis. No nausea, vomiting, tolerating clear liquid diet. No diarrhea, constipation, no red blood per rectum, no dark tarry stools. No fever, chills, no recent inadvertent weight loss. All other review of systems negative. PHYSICAL EXAMINATION: CHEST: Clear. Good breath sounds bilaterally. HEART: Regular, no murmurs. EXTREMITIES: No lower extremity edema, negative Homans sign. HEENT: No scleral icterus. NECK: No cervical lymphadenopathy. ABDOMEN: Soft, nondistended. There is pain in the upper abdominal quadrant as well as epigastric region upon deep palpation. No peritoneal signs, no hernias. Incisions are clean, dry and intact. SKIN: Warm, dry. ASSESSMENT AND PLAN: A 29-year-old female with postoperative pain, likely secondary to the laparoscopic procedure and residual intraperitoneal air causing friction between the visceral and parietal peritoneal linings. We will proceed with increased ambulation, adequate pain control and advance diet as tolerated. Job ID: [id number] DocumentID: [id number] Dictated Date: 09/14/2020 12:02:44 Recapper Date: 09/14/2020 12:28:27 Dictated By: LESLY OBRIEN MD MTDD
[2020-09-14] MEDS ORDERED: OXYC1TAB87 PO (13:56)
--- NOTE | 2020-09-14 13:57 | Discharge Inst-Surgical ---
D/C Lap Instructions-KIDO New, Converted, or Re-Newed RX: RX on Chart Follow Up Appt in 2 weeks Activity as tolerated High Fiber Diet 25g or more per day Avoid Alcohol, Caffeine, Spicy [place] and Acid foods. Drink 64 fluid oz or more of fluids per day. Symptoms to Report: Fever over 101 degree F, Nausea/Vomiting If any problems/questions: Contact your physician or go to Emergency Room LESLY OBRIEN MD September 14, 2020 13:57
[2020-09-14] MEDS: oxyCODONE/APAP 5/325MG (PERCOCET 5) TABLET PO PRN ×2 (16:05→20:39)
[2020-09-14] MEDS ORDERED: diphenhydrAMINE 50 MG/ML INJ (BENADRYL) ONE (22:58)
[2020-09-14] MEDS ORDERED: diphenhydrAMINE 50 MG/ML INJ (BENADRYL) IVP PRN (23:30)
[2020-09-14] MEDS ORDERED: HYDROmorphone (DILAUDID) 2 MG TAB PO PRN (23:30)
[2020-09-15] VITALS: BP 102/60
[2020-09-15 04:00] VITALS: BP 100/64
[2020-09-15] MEDS: LACTATED RINGERS 1,000 ML IV SCH ×2 (04:46→13:09)
[2020-09-15 06:02] LABS: ALBUMIN 3.5 GM/DL (3.2-4.5)
[2020-09-15 06:03] LABS: CHLORIDE 108 MMOL/L (98-107); POTASSIUM 3.3 MMOL/L (3.6-5.0); SODIUM 144 MMOL/L (135-145)
[2020-09-15 06:04] LABS: CALCIUM 8.6 MG/DL (8.5-10.1)
[2020-09-15 06:05] LABS: GLUCOSE 79 MG/DL (70-105); TOTAL PROTEIN 5.9 GM/DL (6.4-8.2)
[2020-09-15 06:06] LABS: CARBON DIOXIDE 26 MMOL/L (21-32)
[2020-09-15 06:07] LABS: BILIRUBIN,TOTAL 0.5 MG/DL (0.1-1.0)
[2020-09-15 06:08] LABS: ALKALINE PHOSPHATASE 98 U/L (40-136)
[2020-09-15 06:09] LABS: GFR ESTIMATED > 60
[2020-09-15 06:10] LABS: BUN/CREATININE RATIO 8
[2020-09-15 06:12] LABS: ALANINE AMINOTRANSFERASE 28 U/L (0-55)
[2020-09-15 07:50] VITALS: BP 114/73
[2020-09-15] MEDS: DOCUSATE SODIUM 100 MG (COLACE) CAP PO SCH (08:18)
[2020-09-15] MEDS: POTASSIUM CL 10MEQ/50ML IVPB 50 ML IV SCH ×2 (09:58→13:12)
[2020-09-15 12:00] VITALS: BP 110/72
--- NOTE | 2020-09-15 14:05 | Progress Note ---
Subjective Date Seen by a Provider: September 15, 2020 Time Seen by a Provider: 13:00 Subjective/Events-last exam doing much better today. tolerating diet. pain controlled. ambulating well. LFT's normal. Objective Exam Vital Signs Date Time Temp Pulse Resp B/P (MAP) Pulse Ox O2 Delivery O2 Flow Rate FiO2 09/15/20 12:00 36.4 65 16 110/72 (85) 98 Room Air 09/15/20 07:50 36.9 68 16 114/73 (87) 96 Room Air 09/15/20 04:00 36.5 62 14 100/64 (76) 98 Room Air 09/15/20 00:00 36.5 74 14 102/60 (74) 97 Room Air 09/14/20 20:00 98 Room Air 09/14/20 19:37 37.3 87 18 98/56 (70) 98 Room Air 09/14/20 15:52 37.6 81 18 100/56 (71) 98 Room Air I & O 09/15/20 06:59 Intake Total 4990 ml Output Total 3700 ml Balance 1290 ml Capillary Refill : Less Than 3 Seconds General Appearance: No Apparent Distress HEENT: PERRL/EOMI Neck: Full Range of Motion Respiratory: Chest Non Tender, Lungs Clear, Normal Breath Sounds Cardiovascular: Regular Rate, Rhythm Gastrointestinal: normal bowel sounds, soft, tenderness Extremity: Normal Capillary Refill Neurologic/Psychiatric: Alert, Oriented x3 Skin: Normal Color Lymphatic: No Adenopathy Results Lab Laboratory Tests 09/15/20 05:42: Sodium Level 144, Potassium Level 3.3L, Chloride Level 108H, Carbon Dioxide Level 26, Anion Gap 10, Blood Urea Nitrogen 6L, Creatinine 0.80, Estimat Glomerular Filtration Rate > 60, BUN/Creatinine Ratio 8, Glucose Level 79, Calcium Level 8.6, Corrected Calcium 9.0, Total Bilirubin 0.5, Aspartate Amino Transf (AST/SGOT) 13, Alanine Aminotransferase (ALT/SGPT) 28, Alkaline Phosphatase 98, Total Protein 5.9L, Albumin 3.5 Assessment/Plan Assessment/Plan Assess & Plan/Chief Complaint s/p lap siria with perisistent pain and nausea. increase diet as tolerated. doing better with different PO pain med. increase ambulation. home soon. LESLY OBRIEN MD September 15, 2020 14:05
[2020-09-15] MEDS ORDERED: HYDR2TAB30 PO (14:06)
[2020-09-15 15:25] VITALS: BP 110/72
--- NOTE | 2020-09-29 11:13 | Physician Query-Final Dx ---
GRACE NOWAK 09/29/20 1113: Final Diagnosis Give Final Diagnosis Please give Final Diagnosis LESLY OBRIEN MD 09/29/20 1149: Final Diagnosis Give Final Diagnosis pain and dehydration with difficult ambulation s/p recent laparoscopic cholecystectomy for chronic calculous cholecystitis. GRACE NOWAK Sep 29, 2020 11:13 LESLY OBRIEN MD Sep 29, 2020 11:49
== END 2020-09-15 15:25 | disposition home or self-care (01) ==
LOC: EDUNIT# 16:12 → ER 16:14 → 4TH 18:10
PROVIDERS: ADMIT Surgery; ATTEND Surgery
DX: G89.18 Other acute postprocedural pain (principal); R11.2 Nausea with vomiting, unspecified; E86.0 Dehydration; M11.269 Other chondrocalcinosis, unspecified knee; Z90.49 Acquired absence of other specified parts of digestive tract; Z79.891 Long term (current) use of opiate analgesic
CPT/HCPCS: 74177; 80053 ×3; 83690; 85025 ×2; 96361; 96374; 96375; 99284; G0378; 36415

== ENCOUNTER → 2020-11-16 | Outpatient (CLI) | payer OTHER ==
[~2020-11-16] MED LIST changes: +DOCU100T7 PO; +HYDR2TAB30 PO; +IBUP-1773 PO; +ONDA-105 PO; +OXYC1TAB11 PO; +OXYC1TAB87 PO; +SIME180C4 PO
[2020-11-16 15:54] LABS: BASOPHILS % (AUTO) 0 % (0-10); EOSINOPHILS # (AUTO) 0.2 10^3/uL (0.0-0.3); EOSINOPHILS % (AUTO) 5 % (0-10); HEMATOCRIT 39 % (35-52); LYMPHOCYTES # (AUTO) 1.4 10^3/uL (1.0-4.0); LYMPHOCYTES % (AUTO) 31 % (12-44); MEAN CORPUSCULAR HEMOGLOBIN 30 pg (25-34); MEAN CORPUSCULAR HGB CONC 34 g/dL (32-36); MEAN CORPUSCULAR VOLUME 88 fL (80-99); MEAN PLATELET VOLUME 10.4 fL (9.0-12.2); MONOCYTES # (AUTO) 0.3 10^3/uL (0.0-1.0); MONOCYTES % (AUTO) 5 % (0-12); NEUTROPHILS # (AUTO) 2.7 10^3/uL (1.8-7.8); NEUTROPHILS % (AUTO) 59 % (42-75); PLATELET COUNT 217 10^3/uL (130-400); WHITE BLOOD COUNT 4.6 10^3/uL (4.3-11.0)
[2020-11-16 16:02] LABS: ALBUMIN 4.5 GM/DL (3.2-4.5); POTASSIUM 3.9 MMOL/L (3.6-5.0)
[2020-11-16 16:03] LABS: CALCIUM 9.3 MG/DL (8.5-10.1)
[2020-11-16 16:05] LABS: TOTAL PROTEIN 7.7 GM/DL (6.4-8.2)
[2020-11-16 16:06] LABS: BILIRUBIN,TOTAL 0.3 MG/DL (0.1-1.0)
[2020-11-16 16:08] LABS: CREATININE SERUM 0.84 MG/DL (0.60-1.30)
[2020-11-16 16:31] LABS: FREE T4 (FREE THYROXINE) 0.94 NG/DL (0.70-1.48)
== END ==
LOC: LAB 15:20
PROVIDERS: ATTEND Family Medicine
DX: D64.9 Anemia, unspecified (principal); L65.9 Nonscarring hair loss, unspecified; R53.83 Other fatigue; R19.7 Diarrhea, unspecified
CPT/HCPCS: 36415; 80053; 82728; 83540; 84439; 84443; 85025

== ENCOUNTER → 2021-03-02 | Outpatient (CLI) | payer BC, OTHER ==
[~2021-03-02] MED LIST changes: -DCS100C PO; +DOCU-239 PO
[2021-03-02 14:08] LABS: FREE T4 (FREE THYROXINE) 0.84 NG/DL (0.70-1.48)
== END ==
LOC: LAB 12:51
PROVIDERS: ATTEND Family Medicine
DX: R94.6 Abnormal results of thyroid function studies (principal)
CPT/HCPCS: 36415; 84439; 84443

== ENCOUNTER 2022-04-05 08:07 | Outpatient (RCR) | payer BC, OTHER | END 2022-04-22 | disposition home or self-care (01) | LOC: LAB 08:07 | PROVIDERS: ATTEND Family Medicine | DX: Z34.90 Encounter for supervision of normal pregnancy, unspecified, unspecified trimester (principal); Z3A.00 Weeks of gestation of pregnancy not specified | CPT/HCPCS: 36415; 84144 ==

== ENCOUNTER 2022-05-17 12:10 | Outpatient (RCR) | payer OTHER | END 2022-05-23 | disposition home or self-care (01) | LOC: LAB 12:10 | PROVIDERS: ATTEND Family Medicine | DX: Z34.90 Encounter for supervision of normal pregnancy, unspecified, unspecified trimester (principal); Z3A.00 Weeks of gestation of pregnancy not specified | CPT/HCPCS: 36415; 84144 ==

== ENCOUNTER 2022-06-14 08:04 | Outpatient (RCR) | payer OTHER | END 2022-06-20 | disposition home or self-care (01) | LOC: LAB 08:04 | PROVIDERS: ATTEND Family Medicine | DX: O09.90 Supervision of high risk pregnancy, unspecified, unspecified trimester (principal); Z3A.00 Weeks of gestation of pregnancy not specified | CPT/HCPCS: 36415; 84144 ==

== ENCOUNTER → 2022-06-21 | Outpatient (CLI) | payer OTHER ==
--- NOTE | 2022-06-21 14:43 | Diagnostic Imaging Report ---
INDICATION: Twin . TECHNIQUE: Multiple real-time grayscale images were obtained over the gravid uterus. COMPARISON: None FINDINGS: A twin live dichorionic, diamniotic is noted. Fetus A is in a cephalic presentation to the maternal right and fetus B is transverse to maternal left with the head to maternal left. Twin A heart rate is 158 bpm and twin B heart rate is 152 bpm. Twin A placenta is posterior and to the right and Twin B placenta is anterior to the left. Amniotic fluid index is 12.4 cm. surveys demonstrate both fetus A and fetus B kidneys, bladder and stomach to be unremarkable. brains unremarkable. There is a four-chamber heart for fetus A and fetus B. There are three-vessel cords for both, with normal cord insertion. spines are unremarkable. Cervical length is 4.5 cm. Biometrical measurements are as follows: Biparietal 5.01 cm, age 21 weeks 2 days. Head circumference 19.17 cm, age 21 weeks 3 days. Abdominal circumference 14.73 cm, age 20 weeks 1 days. Femur length 3.12 cm, age 19 weeks 5 days. Sonographic estimate age: 20 weeks 5 days. Sonographic estimated date of delivery: 11/03/2022. Estimated Weight: 398 gm (+/- 48 gm). LMP percentile: 32%. heart rate: 158 beats per minute. number: 1 of 2. IMPRESSION: Dichorionic, diamniotic twin approximately 21 weeks gestational age with estimated of confinement sonographically 11/03/2022. No complicating features are detected. Dictated by: Dictated on workstation # [id number]
== END ==
LOC: RAD 09:35
PROVIDERS: ATTEND Obstetrics & Gynecology
DX: O30.042 Twin pregnancy, dichorionic/diamniotic, second trimester (principal); Z3A.21 21 weeks gestation of pregnancy
CPT/HCPCS: 76805; 76810

== ENCOUNTER 2022-06-29 09:51 | Outpatient (RCR) | payer OTHER | END 2022-07-21 | disposition home or self-care (01) | LOC: LAB 09:51 | PROVIDERS: ATTEND Family Medicine | DX: O09.90 Supervision of high risk pregnancy, unspecified, unspecified trimester (principal); Z3A.00 Weeks of gestation of pregnancy not specified | CPT/HCPCS: 36415; 84144 ==

== ENCOUNTER → 2022-07-12 | Outpatient (CLI) | payer OTHER | LOC: LABNPT 07:59 | PROVIDERS: ATTEND Nurse Practitioner | DX: S83.231A Complex tear of medial meniscus, current injury, right knee, initial encounter (principal); X58.XXXA Exposure to other specified factors, initial encounter | CPT/HCPCS: 84144 ==

== ENCOUNTER 2022-08-09 08:15 | Outpatient (RCR) | payer OTHER | END 2022-08-20 | disposition home or self-care (01) | LOC: LAB 08:15 | PROVIDERS: ATTEND Family Medicine | DX: O09.90 Supervision of high risk pregnancy, unspecified, unspecified trimester (principal); Z3A.00 Weeks of gestation of pregnancy not specified | CPT/HCPCS: 36415; 84144 ==

== ENCOUNTER → 2022-09-20 | Outpatient (RCR) | payer OTHER | END | disposition home or self-care (01) | LOC: LAB 08-23 08:35 | PROVIDERS: ATTEND Family Medicine | DX: O09.90 Supervision of high risk pregnancy, unspecified, unspecified trimester (principal); Z3A.00 Weeks of gestation of pregnancy not specified | CPT/HCPCS: 36415; 84144 ==

== ENCOUNTER → 2022-10-25 | Outpatient (CLI) | payer OTHER ==
[~2022-10-25] MED LIST changes: +ACET-93 PO; +DOCU100C37 PO
== END | disposition home or self-care (01) ==
LOC: PREOP 05:50
PROVIDERS: ATTEND Obstetrics & Gynecology
DX: Z01.818 Encounter for other preprocedural examination (principal)

== ENCOUNTER 2022-10-26 05:34 | Inpatient (IN) | payer OTHER ==
[2022-10-26] VITALS (13 sets, daily range): BP systolic 102–133; BP diastolic 57–75
[~2022-10-26] VITALS: Ht 170.2 cm; Wt 76.8 kg
[~2022-10-26 05:34] MED LIST changes: -ACET-93 PO; -DOCU100C37 PO
[2022-10-26] MEDS ORDERED: ceFAZolin INJECTION 2,000 MG in NS (IVPB) 50 ML IV ONE (05:45)
[2022-10-26] MEDS ORDERED: CITRIC ACID/SOB CIT (BICITRA) 30 ML UDC PO ONE (06:00)
[2022-10-26] MEDS ORDERED: FAMOTIDINE 20MG/2ML IV (PEPCID) IV ONE (06:00)
[2022-10-26] MEDS ORDERED: METOCLOPRAMIDE INJ 10 MG/2 ML (REGLAN) IV ONE (06:00)
[2022-10-26] MEDS ORDERED: LACTATED RINGERS 1,000 ML IV PRN ×2 (06:00)
[2022-10-26 06:37] LABS: BASOPHILS % (AUTO) 0 % (0-10); EOSINOPHILS # (AUTO) 0.1 10^3/uL (0.0-0.3); EOSINOPHILS % (AUTO) 1 % (0-10); HEMATOCRIT 36 % (35-52); HEMOGLOBIN 12.8 g/dL (11.5-16.0); LYMPHOCYTES # (AUTO) 1.4 10^3/uL (1.0-4.0); LYMPHOCYTES % (AUTO) 21 % (12-44); MEAN CORPUSCULAR HEMOGLOBIN 33 pg (25-34); MEAN CORPUSCULAR HGB CONC 36 g/dL (32-36); MEAN CORPUSCULAR VOLUME 93 fL (80-99); MEAN PLATELET VOLUME 11.4 fL (9.0-12.2); MONOCYTES # (AUTO) 0.5 10^3/uL (0.0-1.0); MONOCYTES % (AUTO) 7 % (0-12); NEUTROPHILS # (AUTO) 4.5 10^3/uL (1.8-7.8); NEUTROPHILS % (AUTO) 69 % (42-75); PLATELET COUNT 142 10^3/uL (130-400); WHITE BLOOD COUNT 6.5 10^3/uL (4.3-11.0)
--- NOTE | 2022-10-26 07:25 | History & Physical-OB ---
OB - Chief Complaint & HPI Date/Time Date of Admission: Date of Admission: Oct 26, 2022 at 05:34 Date seen by a Provider: Oct 26, 2022 Time Seen by a Provider: 07:15 Chief Complaint/History OB-Reason for Admission/Chief: Onset of Labor Hx : 4 Hx Para: 3 Expected Date of Delivery: Nov 07, 2022 Gestational Age in Weeks: 38 Gestational Age in Days: 2 Admission Nurse Assessment Rev: Yes History of Labs A pos Antibody neg RI RPR NR HBsAg NR HIV NR GC neg GBS neg Allergies and Home Medications Allergies Coded Allergies: oxycodone (Verified Allergy, Mild, itchiness, 09/14/20) Patient Home Medication List Home Medication List Reviewed: Yes Docusate Sodium (Stool Softener) 100 Mg Tablet, 100 MG PO BID PRN for CONSTIPATION-1ST LINE, (Reported) Entered as Reported by: MARLEN FULLER on 09/14/20 1040 Hydromorphone HCl (Dilaudid) 2 Mg Tablet, 2 MG PO Q4H Prescribed by: LESLY OBRIEN on 09/15/20 1406 Ibuprofen (Ibuprofen) 600 Mg Tablet, 600 MG PO Q6H PRN for PAIN-MILD (1-4), (Reported) Entered as Reported by: MARLEN FULLER on 09/14/20 1040 Ondansetron HCl (Ondansetron HCl) 4 Mg Tablet, 4 MG PO Q4H PRN for NAUSEA/VOMITING-1ST LINE, (Reported) Entered as Reported by: MARLEN FULLER on 09/14/20 1040 Simethicone (Gas-X Ultra Strength) 180 Mg Capsule, 180-360 MG PO Q4H PRN for GAS, (Reported) Entered as Reported by: MARLEN FULLER on 09/14/20 1040 OB - History Hx of Present Care: Yes Ultrasounds: Normal mid trimester US Obstetrical Complications: Gestational Diabetes (GDMA1) Medical Complications: None Patient Past Medical History n/a Social History/Family History 2nd Hand Smoke Exposure: No Immunizations Influenza Vaccine Up-to-Date: No; Not Current Hepatitis A: Yes Hepatitis B: Yes Tetanus Booster (TDap): Less than 5yrs OB - Admission Exam Physical Exam Vitals: Vital Signs 10/26/22 06:32 Pulse 83 Resp 18 B/P (MAP) 104/65 (78) Pulse Ox 99 O2 Delivery Room Air HEENT: NCAT Heart: Rhythm Normal Lungs: Clear Abdomen: Gravid Extremities: Normal Reflexes: Normal Cervical Dilatation: 6cm Effacement: 75% Station: -1 Membranes: Intact Heart Rate: 130's Accelerations: Accelerations Present Decelerations: No Decelerations Short Term Variability: Present Patient Access Director Variability: Average (6-25) Contractions on Admission: < 5 Minutes Apart Intensity: Moderate Labs Laboratory Tests Test 10/26/22 06:28 Range/Units White Blood Count 6.5 4.3-11.0 10^3/uL Red Blood Count 3.86 3.80-5.11 10^6/uL Hemoglobin 12.8 11.5-16.0 g/dL Hematocrit 36 35-52 % Mean Corpuscular Volume 93 80-99 fL Mean Corpuscular Hemoglobin 33 25-34 pg Mean Corpuscular Hemoglobin Concent 36 32-36 g/dL Red Cell Distribution Width 12.3 10.0-14.5 % Platelet Count 142 130-400 10^3/uL Mean Platelet Volume 11.4 9.0-12.2 fL Immature Granulocyte % (Auto) 1 % Neutrophils (%) (Auto) 69 42-75 % Lymphocytes (%) (Auto) 21 12-44 % Monocytes (%) (Auto) 7 0-12 % Eosinophils (%) (Auto) 1 0-10 % Basophils (%) (Auto) 0 0-10 % Neutrophils # (Auto) 4.5 1.8-7.8 10^3/uL Lymphocytes # (Auto) 1.4 1.0-4.0 10^3/uL Monocytes # (Auto) 0.5 0.0-1.0 10^3/uL Eosinophils # (Auto) 0.1 0.0-0.3 10^3/uL Basophils # (Auto) 0.0 0.0-0.1 10^3/uL Immature Granulocyte # (Auto) 0.1 0.0-0.1 10^3/uL OB - Assessment/Plan/Diagnosis Assessment Assessment: active labor Admission Dx 32 yo @ 38 weeks Di/Di Twins GDMA1 GBS neg Admission Status: Inpatient Order (span 2 midnights) Reason for Inpatient Admission: Active labor with 38 week twin gestation Plan Plan: Expectant Management NILS ZHAO DO Oct 26, 2022 07:25
[2022-10-26] MEDS ORDERED: D5 LR IV SOLUTION 1,000 ML IV SCH (07:30)
[2022-10-26] MEDS ORDERED: NS IV 1000 ML 1,000 ML ONE (07:42)
[2022-10-26] MEDS ORDERED: OXYTOCIN PRE-MIX DRIP 500 ML IV ONE (08:18)
[2022-10-26] MEDS ORDERED: LIDOCAINE/EPI 2% 1:200,00 (XYLOCAINE) 20 ML VIAL ONE (08:18)
[2022-10-26] MEDS: OXYTOCIN PRE-MIX DRIP 500 ML IV SCH ×2 (09:59→10:39)
[2022-10-26] MEDS ORDERED: METHYLERGONOVINE 0.2 MG/ML (METHERGINE) AMP ONE (10:03)
[2022-10-26] MEDS ORDERED: MEASLES,MUMPS,RUBELLA 1 EA INJ SQ ONE (10:15)
[2022-10-26] MEDS ORDERED: BENZOCAINE/MENTHOL (DERMOPLAST) 56 ML CAN TP PRN (10:15)
[2022-10-26] MEDS ORDERED: NALOXONE 0.4 MG/ML 1 ML (NARCAN) VIAL IV PRN (10:15)
[2022-10-26] MEDS ORDERED: WITCH HAZEL(TUCKS) 40 EA JAR TOP PRN (10:15)
[2022-10-26] MEDS ORDERED: DIBUCAINE 1% OINTMENT 28 GM TUBE TOP PRN (10:15)
[2022-10-26] MEDS ORDERED: TETANUS,DIPTH,PERTUSS P/F (BOOSTRIX) 0.5 ML VIAL IM ONE (10:15)
--- NOTE | 2022-10-26 10:18 | OB Labor & Delivery Record ---
L&D History Date of Service Date of Service: Oct 26, 2022 History Expected Date of Delivery: Nov 07, 2022 Gestational Age in Weeks: 38 Hx : 4 Hx Para: 3 Complications Events: Routine care Operative Indications (Cesarea: Di di twin Intrapartal Events: None L&D Stage1 Stage One Onset of Labor - Date: Oct 26, 2022 Monitors and Tracing Monitor Mode: External Heart Rate: 135 Monitor Accelerations: Uniform Monitor Decelerations: Early Station: 0 Potato Chip Fryer Variability: Average (6-10) Short Term Variability: Present Presentation: Vertex Vital Signs VS - Last 72 Hours, by Label 10/26/22 06:32 Pulse 83 Resp 18 B/P (MAP) 104/65 (78) Pulse Ox 99 O2 Delivery Room Air Rupture of Membranes Spontaneous Ruture of Membrane: No Amniotic Membrane Rupture Time: 07:45 Amniotic Membrane Fluid Desc.: Bloody Vaginal Bleeding Description: Normal Show Progress/Notes Patient admitted 6 cm vtx/vtx presentation. She had AROM performed at admission and rapidly progressed to complete and + 2 station with no analgesia L&D Stage2 Monitors and Tracing Monitor Mode: External Heart Rate: 135 Condition of Infant Condition of Infant Condition of Infant: Living Exam: No Observed Abnormalities Live male infant (A) Weight 8lbs, APGARs pending; Live female infant (B) Weight 6lbs 14oz, APGARs pending Resuscitation Resuscitation: N/A - Spontaneous Resp L&D Stage3 Pictocin Pitocin Administration Comment: 30 mu wide open after delivery of placenta .02 mg methergine given IV Placenta Delivery Placenta Delivery: Spontaneous Delivery Summary Summary Estimated blood loss (mL): 400 Attending at delivery: Nils Zhao DO Condition of Delivery Examined: Cervix Examined, Uterus Explored Post Hemorrhage: No Condition of Mother stable Condition of Infant (s) stable NILS ZHAO DO Oct 26, 2022 10:18
[2022-10-26] MEDS: IBUPROFEN 600 MG (MOTRIN) TAB PO SCH ×3 (10:38→21:51)
[2022-10-26] MEDS ORDERED: CATHETER FLUSH 10 ML SYR IV SCH ×2 (14:00)
[2022-10-26] MEDS: ACETAMINOPHEN 500 MG TAB (TYLENOL) PO PRN (14:39)
[2022-10-26] MEDS: DOCUSATE SODIUM 100 MG (COLACE) CAP PO SCH (20:29)
[2022-10-27] MEDS: ACETAMINOPHEN 500 MG TAB (TYLENOL) PO PRN (00:47)
[2022-10-27 00:50] VITALS: BP 101/56
[2022-10-27 04:53] VITALS: BP 99/56
[2022-10-27] MEDS: IBUPROFEN 600 MG (MOTRIN) TAB PO SCH ×2 (04:54→17:18)
[2022-10-27 05:46] LABS: BASOPHILS % (AUTO) 0 % (0-10); EOSINOPHILS # (AUTO) 0.1 10^3/uL (0.0-0.3); EOSINOPHILS % (AUTO) 1 % (0-10); HEMATOCRIT 29 % (35-52); HEMOGLOBIN 10.5 g/dL (11.5-16.0); LYMPHOCYTES # (AUTO) 1.7 10^3/uL (1.0-4.0); LYMPHOCYTES % (AUTO) 20 % (12-44); MEAN CORPUSCULAR HEMOGLOBIN 33 pg (25-34); MEAN CORPUSCULAR HGB CONC 36 g/dL (32-36); MEAN CORPUSCULAR VOLUME 93 fL (80-99); MEAN PLATELET VOLUME 11.7 fL (9.0-12.2); MONOCYTES # (AUTO) 0.4 10^3/uL (0.0-1.0); MONOCYTES % (AUTO) 5 % (0-12); NEUTROPHILS % (AUTO) 73 % (42-75); PLATELET COUNT 147 10^3/uL (130-400); WHITE BLOOD COUNT 8.3 10^3/uL (4.3-11.0)
[2022-10-27] MEDS ORDERED: PRENATAL VITAMIN 1 EA TAB PO SCH (07:00)
--- NOTE | 2022-10-27 07:27 | Postpartum Progress Note ---
Note Note Day # 1 Subjective: Patient is without complaints. Ambulating, voiding. Tolerating a regular diet without nausea or vomiting. Normal lochia. Pain is well controlled with oral pain medications. Objective: Physical Exam: General - Alert and oriented, no apparent distress Abdomen - Soft, appropriately tender to palpation, non-distended, fundus firm at umbilicus Extremities - no edema, negative Kassandra's bilaterally Assessment: PPD 1 NVD x 2 for twin Acute blood loss anemia Plan: Routine care. Encourage breast feeding. Encourage ambulation. Ferrous sulfate supplementation. Plan for discharge today Vitals - Labs Vital Signs - I&O Vital Signs Date Time Temp Pulse Resp B/P (MAP) Pulse Ox O2 Delivery O2 Flow Rate FiO2 10/27/22 04:53 36.9 74 16 99/56 (70) 96 Room Air 10/27/22 00:50 37.1 74 16 101/56 (71) 96 Room Air 10/26/22 20:00 37.1 68 16 102/59 (73) 97 Room Air 10/26/22 16:07 37.1 10/26/22 16:00 37.1 56 18 110/67 (81) 97 Room Air 10/26/22 12:41 54 121/67 (85) 10/26/22 12:26 63 112/64 (80) 10/26/22 12:11 54 122/68 (86) 10/26/22 11:56 52 126/74 (91) 10/26/22 11:41 55 133/74 (93) 10/26/22 11:26 55 123/61 (81) 10/26/22 11:11 60 125/63 (83) 10/26/22 10:56 68 131/61 (84) 10/26/22 10:23 68 18 122/75 (91) Room Air 10/26/22 09:50 36.1 75 18 106/57 (73) Room Air I & O 10/27/22 07:00 Intake Total 1320 ml Balance 1320 ml Labs Laboratory Tests 10/26/22 07:29: Syphilis Total Antibody Negative 10/26/22 12:16: Glucometer 48*L 10/27/22 05:19: White Blood Count 8.3, Red Blood Count 3.14L, Hemoglobin 10.5L, Hematocrit 29L, Mean Corpuscular Volume 93, Mean Corpuscular Hemoglobin 33, Mean Corpuscular Hemoglobin Concent 36, Red Cell Distribution Width 12.3, Platelet Count 147, Meena n Platelet Volume 11.7, Immature Granulocyte % (Auto) 1, Neutrophils (%) (Auto) 73, Lymphocytes (%) (Auto) 20, Monocytes (%) (Auto) 5, Eosinophils (%) (Auto) 1, Basophils (%) (Auto) 0, Neutrophils # (Auto) 6.0, Lymphocytes # (Auto) 1.7, Monocytes # (Auto) 0.4, Eosinophils # (Auto) 0.1, Basophils # (Auto) 0.0, Immature Granulocyte # (Auto) 0.1 NILS ZHAO DO Oct 27, 2022 07:27
--- NOTE | 2022-10-27 07:28 | Discharge Inst-Women's Service ---
Discharge Inst-Women's Serv Depart Medication/Instructions New, Converted or Re-Newed RX: Transmitted to Pharmacy Final Diagnosis PPD 1 NVD x 2 Problems Reviewed?: Yes Consults/Follow Up Additional Follow Up: Yes Orders/Referrals Dr. Zhao in 6 weeks Activity Activity: Activity as Tolerated Driving Instructions: No Driving for 1 Week NO SMOKING: NO SMOKING Nothing Inside Vagina: No Douching, No [place], No Tampons Diet Discharge Diet: No Restrictions Symptoms to Report to : Bleeding Excessive, Pain Increased, Fever Over 101 Degrees F, Vaginal Bleeding Increase, Questions/Concerns For Any Problems or Questions: Contact Your Physician NILS ZHAO DO Oct 27, 2022 07:27
[2022-10-27] MEDS ORDERED: BENZ78AE5 TP (07:29)
[2022-10-27] MEDS ORDERED: DOCU100C37 PO (07:29)
[2022-10-27] MEDS ORDERED: ACET-93 PO (07:29)
[2022-10-27] MEDS ORDERED: IBUP-844 PO (07:29)
[2022-10-27] MEDS: DOCUSATE SODIUM 100 MG (COLACE) CAP PO SCH (08:57)
[2022-10-27 08:59] VITALS: BP 93/51
[2022-10-27] MEDS ORDERED: FERROUS SULF 325 MG (IRON) TAB PO SCH (09:00)
== END 2022-10-27 17:51 | disposition home or self-care (01) | DRG 806 ==
LOC: LDRP 05:34
PROVIDERS: ADMIT Obstetrics & Gynecology; ATTEND Obstetrics & Gynecology
PROC: 10E0XZZ Delivery of Products of Conception, External Approach (ICD-10-PCS; principal; 2022-10-26)
PROC: 10907ZC Drainage of Amniotic Fluid, Therapeutic from Products of Conception, Via Natural or Artificial Opening (ICD-10-PCS; 2022-10-26)
PROC: 3E033VJ Introduction of Other Hormone into Peripheral Vein, Percutaneous Approach (ICD-10-PCS; 2022-10-26)
DX: O30.043 Twin pregnancy, dichorionic/diamniotic, third trimester (principal); D62 Acute posthemorrhagic anemia; Z37.0 Single live birth; O24.429 Gestational diabetes mellitus in childbirth, unspecified control; Z3A.38 38 weeks gestation of pregnancy; O90.81 Anemia of the puerperium
CPT/HCPCS: 36415; 82947; 85025; 86780; 86850; 86900; 86901